=== PATIENT | male | born 1975 | race Caucasian/White ===

== ENCOUNTER 2018-07-30 09:00 | Emergency (ER) | payer SELFPAY ==
[2018-07-30 09:34] LABS: Absolute Lymphocytes (CBC) 1.6 K/uL (0.7-4.9); Absolute Monocytes 0.7 K/uL (0.1-1.3); Absolute Neutrophil 3.9 K/uL (1.8-8.0); Basophils % 0.6 % (0-1.3); Eosinophils % 1.1 % (0-4.4); Hematocrit 46.1 % (39.6-49.0); Monocytes % 10.6 % (3.3-12.3); RBC Red Blood Cell Count 4.89 M/uL (4.33-5.43)
[2018-07-30] MEDS ORDERED: MAGNESIUM CITRATE 300 ML BOT ONE (09:37)
[2018-07-30] MEDS ORDERED: NA CHLORIDE 0.9% 1,000 ML ONE (09:37)
[2018-07-30 09:46] LABS: ALT/SGPT 65 U/L (12-78); AST/SGOT 52 U/L (15-37); Alkaline Phosphatase 73 U/L (45-117); BUN Blood Urea Nitrogen 13 mg/dL (7-18); Bicarbonate 29 mmol/L (21-32); Bilirubin Direct 0.3 mg/dL (0-0.2); Bilirubin Total 0.8 mg/dL (0.2-1.0); Glucose Level 87 mg/dL (74-106); Lipase 65 U/L (73-393); Potassium 3.4 mmol/L (3.5-5.1); Protein, Total 8.9 g/dL (6.4-8.2); Sodium Level 140 mmol/L (136-145)
--- NOTE | 2018-07-30 11:30 | RAD REPORT ---
EXAM DESCRIPTION: CTAbdomen Pelvis W Contrast - 07/30/2018 11:17 am CLINICAL HISTORY: Abdominal pain. Abd pain;Constipation COMPARISON: CT ABD PELVIS W CONTRAST dated 11/06/2013; CT ABD PELVIS W CONTRAST dated 08/06/2013; CT A BD PELVIS W CONTRAST dated 04/07/2013 TECHNIQUE: Biphasic CT imaging of the abdomen and pelvis was performed with 100 ml non-ionic IV cont rast. All CT scans are performed using dose optimization technique as appropriate and may include automated exposure control or mA/KV adjustment according to patient size. FINDINGS: The lung bases are clear. The liver, spleen, pancreas, adrenal glands and kidneys are within normal limits. No bowel obstruction, free air, free fluid or abscess. Appendectomy. No evidence of significant lym phadenopathy. Hardware is in place at the thoracolumbar junction. No acute bony finding. IMPRESSION: No acute intra-abdominal or pelvic finding.
--- NOTE | 2018-07-30 11:38 | EDPHYS ---
Physician Documentation [facility] Name: Jonathan Hall Age: 42 yrs Sex: Male : 1975 Arrival Date: 07/30/2018 Time: 09:04 Bed 7 Private MD: Sherman Aguirre E ED Physician Abe Randolph HPI: 07/30 09:28 This 42 yrs old Male presents to ER via Ambulatory with complaints of rn Abdominal Pain. 09:28 The patient presents with abdominal pain. Onset: The symptoms/episode began/occurred at rn an unknown time. The symptoms do not radiate. Associated signs and symptoms: Pertinent positives: constipation, Pertinent negatives: nausea and vomiting, fever, hematuria, testicular pain, vomiting, vomiting blood. Modifying factors: The symptoms are alleviated by nothing, the symptoms are aggravated by nothing. Severity of pain: At its worst the pain was mild in the emergency department the pain is unchanged. The patient has experienced similar episodes in the past, chronically. Reports chronic abd pain and issues, taking methadone for 15 years, reports has known umbilical hernia that is still able to be reduced, reports increase in constipation but this morning had small bowel movement, no fever. . Historical: - Allergies: 09:11 Nubain; hb 09:11 Stadol; hb 09:11 tramadol; hb - Home Meds: 09:11 Adderall XR 20 mg Oral cp24 1 cap once daily [Active]; methadone 120mg daily [Active]; hb Xanax 2 mg Oral tab 1 tab 3 times per day [Active]; - PMHx: 09:11 Anxiety; ADD/ADHD; COPD; Sleep Apnea; Umbilical Hernia; hb - PSHx: 09:11 back surgery; Appendectomy; Knee surgery; hb - Immunization history:: Adult Immunizations up to date. - Social history:: Smoking status: Patient/guardian denies using tobacco. - Ebola Screening: : No symptoms or risks identified at this time. - Family history:: not pertinent. - Hospitalizations: : No recent hospitalization is reported. ROS: 09:28 Constitutional: Negative for fever, chills, and weight loss, Eyes: Negative for injury, rn pain, redness, and discharge, Neck: Negative for injury, pain, and swelling, Cardiovascular: Negative for chest pain, palpitations, and edema, Respiratory: Negative for shortness of breath, cough, wheezing, and pleuritic chest pain, Abdomen/GI: + abd pain and constipation MS/Extremity: Negative for injury and deformity, Skin: Negative for injury, rash, and discoloration, Neuro: Negative for headache, weakness, numbness, tingling, and seizure. Exam: 09:28 Constitutional: Overweight male, no acute distress Head/Face: Normocephalic, rn atraumatic. Eyes: Pupils equal round and reactive to light, extra-ocular motions intact. Lids and lashes normal. Conjunctiva and sclera are non-icteric and not injected. Cornea within normal limits. Periorbital areas with no swelling, redness, or edema. ENT: poor dentition Abdomen/GI: soft, + palpable umbilical hernia defect, no evidence of incarceration or strangulation, no peritoneal signs Skin: Warm, dry MS/ Extremity: Pulses equal, no cyanosis. Neuro: Awake and alert, GCS 15, oriented to person, place, time, and situation. Cranial nerves II-XII grossly intact. Motor strength 5/5 in all extremities. Sensory grossly intact. Cerebellar exam normal. Normal gait. Vital Signs: 09:11 BP 129 / 88; Pulse 83; Resp 16; Temp 97.9; Pulse Ox 96% on R/A; Pain 8/10; hb 11:48 BP 132 / 87; Pulse 84; Resp 18; Pulse Ox 100% on R/A; hj MDM: 09:06 Patient medically screened. rn 11:34 Differential diagnosis: bowel obstruction, constipation. Data reviewed: vital signs, rn nurses notes. 11:35 Counseling: I had a detailed discussion with the patient and/or guardian regarding: the rn historical points, exam findings, and any diagnostic results supporting the discharge/admit diagnosis, lab results, radiology results, the need for outpatient follow up, to return to the emergency department if symptoms worsen or persist or if there are any questions or concerns that arise at home. Response to treatment: the patient's symptoms have mildly improved after treatment, and as a result, I will discharge patient. Special discussion: I discussed with the patient/guardian in detail that at this point there is no indication for admission to the hospital. It is understood, however, that if the symptoms persist or worsen the patient needs to return immediately for re-evaluation. ED course: Recommend bowel regimen and return precautions. 07/30 09:18 Order name: Basic Metabolic Panel; Complete Time: 10:03 rn 07/30 09:18 Order name: CBC with Diff; Complete Time: 10:03 rn 07/30 09:18 Order name: Hepatic Function; Complete Time: 10:03 rn 07/30 09:18 Order name: Lipase; Complete Time: 10:03 rn 07/30 09:18 Order name: CT Abd/Pelvis - W/Contrast; Complete Time: 11:34 rn 07/30 09:18 Order name: IV Saline Lock; Complete Time: :24 rn 07/30 09:18 Order name: Labs collected and sent; Complete Time: :24 rn Administered Medications: : Drug: NS 0.9% 1000 ml Route: IV; Rate: 1000 ml; Site: right antecubital; : Drug: Magnesium Citrate Liquid 300 ml Route: PO; 09:35 Follow up: Response: No adverse reaction hj Disposition: 07/30/18 11:37 Discharged to Home. Impression: Unspecified abdominal pain, Constipation, unspecified. - Condition is Stable. - Discharge Instructions: Abdominal Pain, Adult, Constipation, Adult. - Medication Reconciliation Form, Thank You Letter, Antibiotic Education, Prescription Opioid Use form. - Follow up: Private Physician; When: As needed; Reason: Recheck today's complaints, Re-evaluation by your physician. - Problem is new. - Symptoms have improved. Signatures: Dispatcher [employer] EDMS Abe Randolph MD MD rn Joaquin, Henry, RN RN hj Baxter, Heather, RN RN hb Peltier, Brian RN RN bp Corrections: (The following items were deleted from the chart) 11:52 11:37 07/30/2018 11:37 Discharged to Home. Impression: Unspecified abdominal pain; bp Constipation, unspecified. Condition is Stable. Forms are Medication Reconciliation Form, Thank You Letter, Antibiotic Education, Prescription Opioid Use. Follow up: Private Physician; When: As needed; Reason: Recheck today's complaints, Re-evaluation by your physician. Problem is new. Symptoms have improved. rn
--- NOTE | 2018-07-30 11:38 | ER ---
Nurse's Notes [facility] Name: Jonathan Hall Age: 42 yrs Sex: Male : 1975 Arrival Date: 07/30/2018 Time: 09:04 Bed 7 Private MD: Sherman Aguirre E Diagnosis: Unspecified abdominal pain;Constipation, unspecified Presentation: 07/30 09:10 Presenting complaint: Abdominal pain, nausea, and constipation x 4 days. Transition of hb care: patient was not received from another setting of care. Onset of symptoms was July 27, 2018. Risk Assessment: Do you want to hurt yourself or someone else? Patient reports no desire to harm self or others. Care prior to arrival: None. 09:10 Method Of Arrival: Ambulatory 09:10 Acuity: DEMARCUS 3 09:12 Initial Sepsis Screen: Does the patient meet any 2 criteria? No. Patient's initial hb sepsis screen is negative. Does the patient have a suspected source of infection? No. Patient's initial sepsis screen is negative. Triage Assessment: 09:15 General: Appears in no apparent distress. comfortable, obese, Behavior is cooperative, bp appropriate for age, anxious. Pain: Complains of pain in abdomen. GI: Abdomen is non-distended. Historical: - Allergies: 09:11 Nubain; hb 09:11 Stadol; hb 09:11 tramadol; hb - Home Meds: 09:11 Adderall XR 20 mg Oral cp24 1 cap once daily [Active]; methadone 120mg daily [Active]; hb Xanax 2 mg Oral tab 1 tab 3 times per day [Active]; - PMHx: 09:11 Anxiety; ADD/ADHD; COPD; Sleep Apnea; Umbilical Hernia; hb - PSHx: 09:11 back surgery; Appendectomy; Knee surgery; hb - Immunization history:: Adult Immunizations up to date. - Social history:: Smoking status: Patient/guardian denies using tobacco. - Ebola Screening: : No symptoms or risks identified at this time. - Family history:: not pertinent. - Hospitalizations: : No recent hospitalization is reported. Screenin:12 Abuse screen: Denies threats or abuse. Denies injuries from another. Nutritional hb screening: No deficits noted. Tuberculosis screening: No symptoms or risk factors identified. Fall Risk None identified. Assessment: 09:15 General: Appears in no apparent distress. comfortable, obese, Behavior is cooperative, bp appropriate for age, anxious. Pain: Complains of pain in abdomen. Neuro: Level of Consciousness is awake, alert, obeys commands, Oriented to person, place, time, situation, Appropriate for age. Cardiovascular: No deficits noted. Respiratory: Airway is patent Respiratory effort is even, unlabored, Respiratory pattern is regular, symmetrical. GI: Bowel sounds present X 4 quads. Abd is soft X 4 quads. : No signs and/or symptoms were reported regarding the genitourinary system. EENT: No deficits noted. Derm: No deficits noted. Musculoskeletal: Circulation, motion, and sensation intact. Range of motion: intact in all extremities. 09:35 Reassessment: Pt finished CT oral contrast, CT notified. . aa5 11:22 Reassessment: Patient and/or family updated on plan of care and expected duration. Pain hj level reassessed. Patient is alert, oriented x 3, equal unlabored respirations, skin warm/dry/pink. wheeled back from CT; assisted to bathroom;. 11:51 Reassessment: PT D/C HOME AMBULATORY WITH FAMILY. bp Vital Signs: 09:11 BP 129 / 88; Pulse 83; Resp 16; Temp 97.9; Pulse Ox 96% on R/A; Pain 8/10; hb 11:48 BP 132 / 87; Pulse 84; Resp 18; Pulse Ox 100% on R/A; hj ED Course: 09:04 Patient arrived in ED. dl4 09:04 Sherman Aguirre MD is Private Physician. dl4 09:06 Abe Randolph MD is Attending Physician. rn 09:08 Antwan Lucero, DENZEL is Primary Nurse. bp 09:10 Triage completed. hb 09:11 Arm band placed on. hb 09:12 Patient has correct armband on for positive identification. Bed in low position. Call hb light in reach. Side rails up X 1. 09:25 Inserted saline lock: 20 gauge in right forearm, using aseptic technique. pc1 09:28 Basic Metabolic Panel Sent. hj 09:28 CBC with Diff Sent. hj 09:28 Hepatic Function Sent. hj 09:28 Lipase Sent. hj 11:08 CT completed. Patient tolerated procedure well. Patient moved to CT via wheelchair. Patient moved back from CT. 11:18 CT Abd/Pelvis - W/Contrast In Process Unspecified. EDMS 11:51 No provider procedures requiring assistance completed. IV discontinued, intact, bp bleeding controlled, No redness/swelling at site. Pressure dressing applied. Administered Medications: : Drug: NS 0.9% 1000 ml Route: IV; Rate: 1000 ml; Site: right antecubital; hj :27 Drug: Magnesium Citrate Liquid 300 ml Route: PO; hj 09:35 Follow up: Response: No adverse reaction Outcome: 11:37 Discharge ordered by . rn 11:52 Discharged to home ambulatory, with family. bp 11:52 Condition: stable 11:52 Discharge instructions given to patient, Instructed on discharge instructions, follow up and referral plans. Demonstrated understanding of instructions, follow-up care. 11:52 Patient left the ED. bp Signatures: Dispatcher [employer] Brittany Wei Roman, MD MD rn Calderon, Audri, RN RN aa5 Nathan Alvarado RN RN hj Baxter, Heather, RN RN hb Peltier, Brian, RN RN bp Luna, David dl4 Anderson Gage pc1
[2018-07-30 11:57] VITALS: TEMP 97.9
[2018-07-30 11:58] VITALS: BP 132/87; O2SAT 100
== END 2018-07-30 11:52 | disposition home or self-care (01) ==
LOC: ER 09:00
DX: K59.00 Constipation, unspecified (principal); F41.9 Anxiety disorder, unspecified; J44.9 Chronic obstructive pulmonary disease, unspecified; F90.9 Attention-deficit hyperactivity disorder, unspecified type; Z88.5 Allergy status to narcotic agent
CPT/HCPCS: 36415; 74177; 80048; 80076; 83690; 85025; 99284; J7030; Q9967

== ENCOUNTER 2018-08-07 11:34 | Emergency (ER) | payer SELFPAY ==
[2018-08-07 13:44] LABS: Absolute Lymphocytes (CBC) 0.9 K/uL (0.7-4.9); Absolute Monocytes 0.5 K/uL (0.1-1.3); Absolute Neutrophil 3.7 K/uL (1.8-8.0); Basophils % 0.4 % (0-1.3); Eosinophils % 0.3 % (0-4.4); Hematocrit 43.6 % (39.6-49.0); Lymphocytes % 18.3 % (15.3-44.8); MPV 10.3 fL (7.6-11.3); Monocytes % 9.3 % (3.3-12.3); RBC Red Blood Cell Count 4.53 M/uL (4.33-5.43)
[2018-08-07 14:20] LABS: ALT/SGPT 48 U/L (12-78); AST/SGOT 33 U/L (15-37); Alkaline Phosphatase 62 U/L (45-117); BUN Blood Urea Nitrogen 15 mg/dL (7-18); Bicarbonate 31 mmol/L (21-32); Bilirubin Direct 0.1 mg/dL (0-0.2); Bilirubin Total 0.4 mg/dL (0.2-1.0); Glucose Level 95 mg/dL (74-106); Potassium 3.8 mmol/L (3.5-5.1); Protein, Total 8.3 g/dL (6.4-8.2); Sodium Level 141 mmol/L (136-145); Troponin (Emerg Dept Use Only) < 0.02 ng/mL (0.0-0.045)
--- NOTE | 2018-08-07 14:31 | EDPHYS ---
Physician Documentation [facility] Name: Jonathan Hall Age: 42 yrs Sex: Male : 1975 Arrival Date: 08/07/2018 Time: 11:36 Bed 18 Private MD: Jason Foss HPI: 08/07 13:05 This 42 yrs old Male presents to ER via Ambulatory with complaints of Dental pm1 pain. 13:05 The patient presents with pain. The problem is located in the lower left lateral pm1 incisor, lower left central incisor, lower right central incisor and lower right lateral incisor. Onset: The symptoms/episode began/occurred 3 day(s) ago. Duration: The symptoms are continuous. Modifying factors: The symptoms are alleviated by nothing, the symptoms are aggravated by nothing. Associated signs and symptoms: Pertinent positives: subjective fever, Pertinent negatives: dysphagia, inability to eat. The patient has experienced similar episodes in the past, chronically. The patient has not recently seen a physician. Patient presents to the ER with primary complaint of dental pain to lower front teeth. Patient with history of drug abuse that caused his extensive dental decay. Has chronic low back pain and a subjective fever yesterday. Patient is concerned that he might have endocarditis from his dental infection. Historical: - Allergies: 12:11 Nubain; iw 12:11 Stadol; iw 12:11 tramadol; iw - Home Meds: 12:11 Adderall XR 20 mg Oral cp24 1 cap once daily [Active]; methadone 120mg daily [Active]; iw Xanax 2 mg Oral tab 1 tab 3 times per day [Active]; - PMHx: 12:11 ADD/ADHD; Anxiety; COPD; Sleep Apnea; Umbilical hernia; iw - PSHx: 12:11 back surgery; Appendectomy; Knee surgery; iw - Immunization history:: Adult Immunizations up to date. - Social history:: Smoking status: . - Ebola Screening: : Patient negative for fever greater than or equal to 101.5 degrees Fahrenheit, and additional compatible Ebola Virus Disease symptoms Patient denies exposure to infectious person Patient denies travel to an Ebola-affected area in the 21 days before illness onset No symptoms or risks identified at this time. ROS: 13:05 Constitutional: Negative for fever, chills, and weight loss, Eyes: Negative for injury, pm1 pain, redness, and discharge. 13:05 Neck: Negative for injury, pain, and swelling, Cardiovascular: Negative for chest pain, palpitations, and edema, Respiratory: Negative for shortness of breath, cough, wheezing, and pleuritic chest pain, Abdomen/GI: Negative for abdominal pain, nausea, vomiting, diarrhea, and constipation. 13:05 : Negative for injury, bleeding, discharge, and swelling, MS/Extremity: Negative for injury and deformity, Skin: Negative for injury, rash, and discoloration, Neuro: Negative for headache, weakness, numbness, tingling, and seizure. 13:05 ENT: Positive for dental pain, Negative for drainage from ear(s), ear pain, rhinorrhea, sinus congestion, sinus pain, sore throat, difficulty swallowing, difficulty handling secretions, hoarseness. 13:05 Back: Positive for of the low back area, pain. Exam: 13:05 Constitutional: This is a well developed, well nourished patient who is awake, alert, pm1 and in no acute distress. Head/Face: Normocephalic, atraumatic. Eyes: Pupils equal round and reactive to light, extra-ocular motions intact. Lids and lashes normal. Conjunctiva and sclera are non-icteric and not injected. Cornea within normal limits. Periorbital areas with no swelling, redness, or edema. Neck: Trachea midline, no thyromegaly or masses palpated, and no cervical lymphadenopathy. Supple, full range of motion without nuchal rigidity, or vertebral point tenderness. No Meningismus. Chest/axilla: Normal chest wall appearance and motion. Nontender with no deformity. No lesions are appreciated. Cardiovascular: Regular rate and rhythm with a normal S1 and S2. No gallops, murmurs, or rubs. Normal PMI, no JVD. No pulse deficits. Respiratory: Lungs have equal breath sounds bilaterally, clear to auscultation and percussion. No rales, rhonchi or wheezes noted. No increased work of breathing, no retractions or nasal flaring. 13:05 Abdomen/GI: Soft, non-tender, with normal bowel sounds. No distension or tympany. No guarding or rebound. No evidence of tenderness throughout. Back: No spinal tenderness. No costovertebral tenderness. Full range of motion. Skin: Warm, dry with normal turgor. Normal color with no rashes, no lesions, and no evidence of cellulitis. MS/ Extremity: Pulses equal, no cyanosis. Neurovascular intact. Full, normal range of motion. 13:05 ENT: External ear(s): are unremarkable, Ear canal(s): are normal, TM's: are normal, Nose: is normal, Mouth: Lips: normal, Oral mucosa: normal, Gums: normal with healthy appearance, Tongue: is normal, Posterior pharynx: is normal, airway is patent, no erythema, no exudate, no peritonsilar mass, no pooling of secretions, no swelling, Dental exam: missing teeth, diffusely, pain, specifically in the lower left lateral incisor (#23), lower left central incisor (#24), lower right central incisor (#25) and lower right lateral incisor (#26). 13:05 Neuro: Orientation: is normal, Motor: is normal, moves all fours. Vital Signs: 12:11 BP 131 / 92; Pulse 103; Resp 16; Temp 98.3; Pulse Ox 96% on R/A; Weight 108.86 kg; iw Height 6 ft. (182.88 cm); Pain 7/10; 13:38 BP 105 / 65; Pulse 79; Resp 20; Pulse Ox 97% on R/A; mh5 12:11 Body Mass Index 32.55 (108.86 kg, 182.88 cm) iw MDM: 12:20 Patient medically screened. pm1 14:30 Data reviewed: vital signs. Data interpreted: Pulse oximetry: on room air is 97 %. pm1 Interpretation: normal. Counseling: I had a detailed discussion with the patient and/or guardian regarding: the historical points, exam findings, and any diagnostic results supporting the discharge/admit diagnosis, lab results, the need for outpatient follow up, for definitive care, a dentist, to return to the emergency department if symptoms worsen or persist or if there are any questions or concerns that arise at home. 08/07 12:46 Order name: LFT's; Complete Time: 14:29 pm1 08/07 12:46 Order name: Basic Metabolic Panel; Complete Time: 14:29 pm1 08/07 12:46 Order name: CBC with Diff; Complete Time: 14:29 pm1 08/07 12:46 Order name: Troponin (emerg Dept Use Only); Complete Time: 14:29 pm1 08/07 12:46 Order name: EKG; Complete Time: 12:46 pm1 08/07 12:46 Order name: EKG - Nurse/Tech; Complete Time: 13:32 pm1 08/07 12:46 Order name: IV Saline Lock; Complete Time: 13:32 pm1 08/07 12:46 Order name: Labs collected and sent; Complete Time: 13:32 pm1 Administered Medications: 14:42 Drug: Clindamycin 600 mg Route: IVPB; Infused Over: 30 mins; Site: right antecubital; ss 15:15 Follow up: IV Status: Completed infusion ss 14:55 Drug: Zofran 4 mg Route: IVP; Site: right antecubital; ss 15:15 Follow up: Response: No adverse reaction; Nausea is decreased ss Disposition: 08/08 08:02 Co-signature as Attending Physician, Jason Juan MD I agree with the assessment and margarita plan of care. Disposition: 08/07/18 14:30 Discharged to Home. Impression: Periapical abscess without sinus. - Condition is Stable. - Discharge Instructions: Dental Abscess, Dental Pain. - Prescriptions for Clindamycin HCl 300 mg Oral Capsule - take 1 capsule by ORAL route every 6 hours for 10 days; 40 capsule. Zofran 4 mg Oral Tablet - take 1 tablet by ORAL route every 8 hours As needed; 20 tablet. - Medication Reconciliation Form, Thank You Letter, Antibiotic Education, Prescription Opioid Use form. - Follow up: Emergency Department; When: As needed; Reason: Worsening of condition. Follow up: Private Physician; When: 2 - 3 days; Reason: Recheck today's complaints, Continuance of care, Re-evaluation by your physician. - Problem is new. - Symptoms have improved. Signatures: Dispatcher [employer] Jason Yanes MD MD cha Williams, Irene, Sophie Whitfield RN, RN RN ss Marinas, Patrick, NP [employer] ADJUSTER pm1 Corrections: (The following items were deleted from the chart) 08/07 15:16 14:30 08/07/2018 14:30 Discharged to Home. Impression: Periapical abscess without ss sinus. Condition is Stable. Forms are Medication Reconciliation Form, Thank You Letter, Antibiotic Education, Prescription Opioid Use. Follow up: Emergency Department; When: As needed; Reason: Worsening of condition. Follow up: Private Physician; When: 2 - 3 days; Reason: Recheck today's complaints, Continuance of care, Re-evaluation by your physician. Problem is new. Symptoms have improved. pm1
--- NOTE | 2018-08-07 14:31 | ER ---
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 Transition of care: patient was not received from another setting of care. Onset of symptoms was August 06, 2018. Risk Assessment: Do you want to hurt yourself or someone else? Patient reports no desire to harm self or others. Initial Sepsis Screen: Does the patient meet any 2 criteria? No. Patient's initial sepsis screen is negative. Does the patient have a suspected source of infection? No. Patient's initial sepsis screen is negative. Care prior to arrival: None. 12:07 Method Of Arrival: Ambulatory iw 12:07 Acuity: DEMARCUS 3 iw Historical: - Allergies: 12:11 Nubain; iw 12:11 Stadol; iw 12:11 tramadol; iw - Home Meds: 12:11 Adderall XR 20 mg Oral cp24 1 cap once daily [Active]; methadone 120mg daily [Active]; iw Xanax 2 mg Oral tab 1 tab 3 times per day [Active]; - PMHx: 12:11 ADD/ADHD; Anxiety; COPD; Sleep Apnea; Umbilical hernia; iw - PSHx: 12:11 back surgery; Appendectomy; Knee surgery; iw - Immunization history:: Adult Immunizations up to date. - Social history:: Smoking status: . - Ebola Screening: : Patient negative for fever greater than or equal to 101.5 degrees Fahrenheit, and additional compatible Ebola Virus Disease symptoms Patient denies exposure to infectious person Patient denies travel to an Ebola-affected area in the 21 days before illness onset No symptoms or risks identified at this time. Screenin:00 Abuse screen: Denies threats or abuse. Denies injuries from another. Nutritional ss screening: No deficits noted. Tuberculosis screening: Never had TB. Fall Risk None identified. Assessment: 13:00 General: Appears in no apparent distress. comfortable, Behavior is calm, cooperative, ss Reports feeling ill for 2-3 days, fatigue for 2-3 days, Denies fever. Pain: Complains of pain in mouth Pain currently is 7 out of 10 on a pain scale. Quality of pain is described as tender, Pain began 3 days ago Is continuous. Neuro: Level of Consciousness is awake, alert, obeys commands, Oriented to person, place, time, situation, Speech speech is clear, but slow. Pupils are PERRLA. Cardiovascular: Capillary refill < 3 seconds is brisk in bilateral fingers Chest pain is denied. Respiratory: Breath sounds are clear bilaterally. Denies cough, shortness of breath. GI: Reports nausea, Patient currently denies abdominal pain, diarrhea, vomiting. : No signs and/or symptoms were reported regarding the genitourinary system. EENT: Nares are clear Poor dentition noted. Throat is clear. Derm: Skin is intact, is healthy with good turgor, Skin is dry, Skin is pink, warm \T\ dry. normal. Musculoskeletal: Circulation, motion, and sensation intact. Range of motion: intact in all extremities, Swelling absent. 15:15 Reassessment: Patient appears in no apparent distress at this time. Patient and/or ss family updated on plan of care and expected duration. Pain level reassessed. Patient is alert, oriented x 3, equal unlabored respirations, skin warm/dry/pink. Vital Signs: 12:11 BP 131 / 92; Pulse 103; Resp 16; Temp 98.3; Pulse Ox 96% on R/A; Weight 108.86 kg; iw Height 6 ft. (182.88 cm); Pain 7/10; 13:38 BP 105 / 65; Pulse 79; Resp 20; Pulse Ox 97% on R/A; mh5 12:11 Body Mass Index 32.55 (108.86 kg, 182.88 cm) iw ED Course: 11:36 Patient arrived in ED. mr 12:10 Triage completed. iw 12:11 Arm band placed on. iw 12:20 Anderson Whitney NP is PHCP. pm1 12:20 Jason Juan MD is Attending Physician. pm1 13:00 Patient has correct armband on for positive identification. Bed in low position. Call ss light in reach. 13:10 Inserted saline lock: 20 gauge in right antecubital area, using aseptic technique. ss ,using aseptic technique. insertion by LUCIANA gongora tech Blood collected. Patient maintains SpO2 saturation greater than 95% on room air. 13:23 Sophie Gunderson, RN is Primary Nurse. 13:42 EKG done, by power tool repair technician. reviewed by Anderson Whitney NP. sm3 15:15 No provider procedures requiring assistance completed. IV discontinued, intact, ss bleeding controlled, No redness/swelling at site. Pressure dressing applied. Administered Medications: 14:42 Drug: Clindamycin 600 mg Route: IVPB; Infused Over: 30 mins; Site: right antecubital; ss 15:15 Follow up: IV Status: Completed infusion ss 14:55 Drug: Zofran 4 mg Route: IVP; Site: right antecubital; ss 15:15 Follow up: Response: No adverse reaction; Nausea is decreased ss Outcome: 14:30 Discharge ordered by MD. pm1 15:15 Discharged to home ambulatory, with significant other. 15:15 Condition: good 15:15 Discharge instructions given to patient, family, Instructed on discharge instructions, follow up and referral plans. medication usage, Demonstrated understanding of instructions, follow-up care, medications, Prescriptions given X 2. 15:16 Patient left the ED. Signatures: Tanvi Thurston Irene, RN RN Sophie Gunderson RN RN ss Marinas, Patrick, NOBLE DRILL RIG OPERATOR HELPER pm1 Phoebe Zarate [facility] [place] 3
--- NOTE | 2018-08-07 14:40 | EKG ---
Test Date: 2018-08-07 Test Time: 13:31:06 Storehouse Clerk: OMAR MEASUREMENT RESULTS: Intervals: Rate: 53 MT: 158 QRSD: 102 QT: 436 QTc: 409 [place]: P: 28 MT: 158 QRS: 12 T: 12 INTERPRETIVE STATEMENTS: Sinus bradycardia Moderate voltage criteria for LVH, may be normal variant Borderline ECG Compared to ECG 03/26/2017 13:39:02 Left ventricular hypertrophy now present Sinus rhythm no longer present Electronically Signed On 08-07-18 14:39:40 CDT by Bang Palomo
[2018-08-07] MEDS ORDERED: CLINDAMYCIN 600MG/D5W 600 MG/50 ML BAG IV ONE (14:47)
[2018-08-07] MEDS ORDERED: ONDANSETRON 4 MG/2 ML VIAL ONE (15:02)
[2018-08-07 16:06] VITALS: TEMP 98.3
[2018-08-07 16:08] VITALS: BP 105/65; O2SAT 97
== END 2018-08-07 15:16 | disposition home or self-care (01) ==
LOC: ER 11:34
DX: K04.7 Periapical abscess without sinus (principal); F90.9 Attention-deficit hyperactivity disorder, unspecified type; F41.9 Anxiety disorder, unspecified; Z88.5 Allergy status to narcotic agent; Z88.6 Allergy status to analgesic agent
CPT/HCPCS: 36415; 80048; 80076; 84484; 85025; 93005; 96365; 96375; 99284; J2405

== ENCOUNTER 2019-04-28 17:48 | Emergency (ER) | payer SELFPAY ==
[2019-04-28] MEDS ORDERED: AMOX/K CLAV 875 MG TAB ONE (19:31)
[2019-04-28] MEDS ORDERED: IBUPROFEN 400 MG TAB ONE (19:31)
--- NOTE | 2019-04-28 19:35 | EDPHYS ---
Physician Documentation [facility] Name: Jonathan Hall Age: 43 yrs Sex: Male : 1975 Arrival Date: 04/28/2019 Time: 17:50 Bed 27 Private MD: Sherman Aguirre E ED Physician Jason Juan HPI: 04/28 19:27 This 43 yrs old Male presents to ER via Ambulatory with complaints of margarita Toothache. 19:27 The patient presents with broken tooth/teeth, pain, redness, swelling. The problem is margarita located in the frenulum and gums. Onset: The symptoms/episode began/occurred 3 day(s) ago. Duration: The symptoms are continuous, and are steadily getting worse. Modifying factors: The symptoms are alleviated by nothing, the symptoms are aggravated by air, chewing, cold fluids. Associated signs and symptoms: The patient has no apparent associated signs or symptoms. Severity of symptoms: At their worst the symptoms were mild, moderate, in the emergency department the symptoms are unchanged. The patient has experienced similar episodes in the past, several times. Historical: - Allergies: 18:08 Nubain; aj1 18:08 Stadol; aj1 18:08 tramadol; aj1 - Home Meds: 18:08 Adderall XR 20 mg Oral cp24 1 cap once daily [Active]; methadone 120mg daily [Active]; aj1 Xanax 2 mg Oral tab 1 tab 3 times per day [Active]; Phenergan Oral [Active]; Probiotic oral oral [Active]; esomeprazole magnesium oral oral [Active]; - PMHx: 18:08 ADD/ADHD; Anxiety; COPD; Sleep Apnea; Umbilical hernia; aj1 - Immunization history:: Flu vaccine is not up to date. - Social history:: Smoking status: Patient/guardian denies using tobacco. - Ebola Screening: : Patient denies travel to an Ebola-affected area in the 21 days before illness onset. ROS: 19:27 Constitutional: Negative for fever, chills, and weight loss, Eyes: Negative for injury, margarita pain, redness, and discharge, Neck: Negative for injury, pain, and swelling, Cardiovascular: Negative for chest pain, palpitations, and edema, Respiratory: Negative for shortness of breath, cough, wheezing, and pleuritic chest pain, Abdomen/GI: Negative for abdominal pain, nausea, vomiting, diarrhea, and constipation, Back: Negative for injury and pain, : Negative for injury, bleeding, discharge, and swelling, MS/Extremity: Negative for injury and deformity, Skin: Negative for injury, rash, and discoloration, Neuro: Negative for headache, weakness, numbness, tingling, and seizure, Psych: Negative for depression, anxiety, suicide ideation, homicidal ideation, and hallucinations, Allergy/Immunology: Negative for hives, rash, and allergies, Endocrine: Negative for neck swelling, polydipsia, polyuria, polyphagia, and marked weight changes, Hematologic/Lymphatic: Negative for swollen nodes, abnormal bleeding, and unusual bruising. 19:27 ENT: Positive for Teeth pain Exam: 19:27 Constitutional: This is a well developed, well nourished patient who is awake, alert, margarita and in no acute distress. Head/Face: Normocephalic, atraumatic. Eyes: Pupils equal round and reactive to light, extra-ocular motions intact. Lids and lashes normal. Conjunctiva and sclera are non-icteric and not injected. Cornea within normal limits. Periorbital areas with no swelling, redness, or edema. Neck: Trachea midline, no thyromegaly or masses palpated, and no cervical lymphadenopathy. Supple, full range of motion without nuchal rigidity, or vertebral point tenderness. No Meningismus. Chest/axilla: Normal chest wall appearance and motion. Nontender with no deformity. No lesions are appreciated. Cardiovascular: Regular rate and rhythm with a normal S1 and S2. No gallops, murmurs, or rubs. Normal PMI, no JVD. No pulse deficits. Respiratory: Lungs have equal breath sounds bilaterally, clear to auscultation and percussion. No rales, rhonchi or wheezes noted. No increased work of breathing, no retractions or nasal flaring. Abdomen/GI: Soft, non-tender, with normal bowel sounds. No distension or tympany. No guarding or rebound. No evidence of tenderness throughout. Back: No spinal tenderness. No costovertebral tenderness. Full range of motion. Male : Normal genitalia with no discharge or lesions. Skin: Warm, dry with normal turgor. Normal color with no rashes, no lesions, and no evidence of cellulitis. MS/ Extremity: Pulses equal, no cyanosis. Neurovascular intact. Full, normal range of motion. Neuro: Awake and alert, GCS 15, oriented to person, place, time, and situation. Cranial nerves II-XII grossly intact. Motor strength 5/5 in all extremities. Sensory grossly intact. Cerebellar exam normal. Normal gait. Psych: Awake, alert, with orientation to person, place and time. Behavior, mood, and affect are within normal limits. 19:27 ENT: Mouth: Oral mucosa: normal, pink and intact, moist, Gums: noted to have cellulitis, reddened, swollen, on the frenulum and gums. Vital Signs: 18:08 BP 130 / 88; Pulse 118; Resp 20; Temp 97.4; Pulse Ox 95% on R/A; Weight 113.85 kg (R); aj1 Height 6 ft. 1 in. (185.42 cm) (R); Pain 3/10; 19:40 BP 118 / 75; Pulse 89; Resp 19; Temp 99.5; Pulse Ox 99% ; rr5 18:08 Body Mass Index 33.12 (113.85 kg, 185.42 cm) [facility] MDM: 18:20 Patient medically screened. [facility] 19:27 Data reviewed: vital signs, nurses notes. [facility] Administered Medications: 19:32 Drug: Augmentin 875 mg Route: PO; rr5 19:48 Follow up: Response: Medication administered at discharge. rr5 19:32 Drug: Motrin 800 mg Route: PO; rr5 19:48 Follow up: Response: Medication administered at discharge. rr5 Disposition: 04/28/19 19:34 Discharged to Home. Impression: Dental caries - pain. - Condition is Stable. - Discharge Instructions: Dental Pain, Dental Pain, [id number]. - Prescriptions for Augmentin 875- 125 mg Oral Tablet - take 1 tablet by ORAL route every 12 hours for 10 days; 20 tablet. - Medication Reconciliation Form, Thank You Letter, Antibiotic Education, Prescription Opioid Use form. - Follow up: Sherman Aguirre MD; When: 2 - 3 days; Reason: Recheck today's complaints, Continuance of care, Re-evaluation by your physician. Follow up: Alin Mcintosh DDS; When: 2 - 3 days; Reason: Recheck today's complaints, Continuance of care, Re-evaluation by your physician. - Problem is new. - Symptoms have improved. Signatures: Josefina Salcedo RN RN aj1 Jason Juan MD MD cha Roque, Raymond RN RN rr5 Corrections: (The following items were deleted from the chart) 19:48 19:34 04/28/2019 19:34 Discharged to Home. Impression: Dental caries - pain. Condition rr5 is Stable. Forms are Medication Reconciliation Form, Thank You Letter, Antibiotic Education, Prescription Opioid Use. Follow up: Sherman Aguirre; When: 2 - 3 days; Reason: Recheck today's complaints, Continuance of care, Re-evaluation by your physician. Follow up: Alin Mcintosh; When: 2 - 3 days; Reason: Recheck today's complaints, Continuance of care, Re-evaluation by your physician. Problem is new. Symptoms have improved. margarita
--- NOTE | 2019-04-28 19:35 | ER ---
Nurse's Notes [facility] Name: Jonathan Hall Age: 43 yrs Sex: Male : 1975 Arrival Date: 04/28/2019 Time: 17:50 Bed 27 Private MD: Sherman Aguirre E Diagnosis: Dental caries-pain Presentation: 04/28 18:05 Presenting complaint: Patient states: "I've got a bad infection in my gums and its aj1 bothering me bad, my face is swollen up, its actually gone down some, but I took some antibiotics that my fiance had." Reports pain to left jaw. Reports subjective fever. Transition of care: patient was not received from another setting of care. Onset of symptoms was 2018. Risk Assessment: Do you want to hurt yourself or someone else? Patient reports no desire to harm self or others. Initial Sepsis Screen: Does the patient meet any 2 criteria? HR > 90 bpm. No. Patient's initial sepsis screen is negative. Does the patient have a suspected source of infection? Yes: Other: possible infected tooth. Care prior to arrival: None. 18:05 Method Of Arrival: Ambulatory aj 18:05 Acuity: DEMARCUS 4 aj1 Triage Assessment: 18:08 General: Appears in no apparent distress. uncomfortable, Behavior is calm, cooperative, aj1 appropriate for age. Pain: Pain currently is 3 out of 10 on a pain scale. EENT: Reports pain since to left jaw. Neuro: Level of Consciousness is awake, alert, obeys commands. Cardiovascular: Patient's skin is warm and dry. Respiratory: Airway is patent Respiratory effort is even, unlabored, Respiratory pattern is regular, symmetrical. Historical: - Allergies: 18:08 Nubain; aj1 18:08 Stadol; aj1 18:08 tramadol; aj1 - Home Meds: 18:08 Adderall XR 20 mg Oral cp24 1 cap once daily [Active]; methadone 120mg daily [Active]; aj1 Xanax 2 mg Oral tab 1 tab 3 times per day [Active]; Phenergan Oral [Active]; Probiotic oral oral [Active]; esomeprazole magnesium oral oral [Active]; - PMHx: 18:08 ADD/ADHD; Anxiety; COPD; Sleep Apnea; Umbilical hernia; aj1 - Immunization history:: Flu vaccine is not up to date. - Social history:: Smoking status: Patient/guardian denies using tobacco. - Ebola Screening: : Patient denies travel to an Ebola-affected area in the 21 days before illness onset. Screenin:20 Abuse screen: Denies threats or abuse. Denies injuries from another. Nutritional ca1 screening: No deficits noted. Tuberculosis screening: No symptoms or risk factors identified. Fall Risk None identified. Assessment: 18:20 General: Appears in no apparent distress. comfortable, Behavior is calm, cooperative, ca1 appropriate for age. Pain: Complains of pain in left cheek Pain currently is 7 out of 10 on a pain scale. Pain began 2 weeks ago. Neuro: Level of Consciousness is awake, alert, obeys commands, Oriented to person. EENT: Dental caries noted in upper left central incisor (#9), upper left lateral incisor (#10), upper left cuspid (#11) and upper left first bicuspid (#12). Derm: Skin is intact, is healthy with good turgor, Skin is pink, warm \\T\\ dry. Musculoskeletal: Circulation, motion, and sensation intact. Capillary refill < 3 seconds, Range of motion: intact in all extremities. 19:00 General: Appears in no apparent distress. comfortable, Behavior is calm, cooperative, rr5 appropriate for age. Neuro: Level of Consciousness is awake, alert, obeys commands, Oriented to person, place, time, situation. Cardiovascular: Capillary refill < 3 seconds Patient's skin is warm and dry. Respiratory: Airway is patent Respiratory effort is even, unlabored, Respiratory pattern is regular, symmetrical. GI: No signs and/or symptoms were reported involving the gastrointestinal system. : No signs and/or symptoms were reported regarding the genitourinary system. EENT: Dental caries noted in upper left cuspid (#11), upper left first bicuspid (#12), upper left second bicuspid (#13) and upper left first molar (#14). 19:45 Reassessment: Patient appears in no apparent distress at this time. Patient is alert, rr5 oriented x 3, equal unlabored respirations, skin warm/dry/pink. discharge instruction given and explained without complaints made. Patient states feeling better. Vital Signs: 18:08 BP 130 / 88; Pulse 118; Resp 20; Temp 97.4; Pulse Ox 95% on R/A; Weight 113.85 kg (R); [facility][1] Height 6 ft. 1 in. (185.42 cm) (R); Pain 3/10; 19:40 BP 118 / 75; Pulse 89; Resp 19; Temp 99.5; Pulse Ox 99% ; rr5 18:08 Body Mass Index 33.12 (113.85 kg, 185.42 cm) [facility][1] ED Course: 17:50 Patient arrived in ED. [facility] 17:50 Sherman Aguirre MD is Private Physician. 5 18:07 Triage completed. aj 18:08 Arm band placed on Patient placed in an exam room. [facility][1] 18:20 Jason Juan MD is Attending Physician. [facility] 18:20 Patient has correct armband on for positive identification. Bed in low position. Call ca1 light in reach. Side rails up X 1. Pulse ox on. NIBP on. 18:20 No provider procedures requiring assistance completed. Patient did not have IV access ca1 during this emergency room visit. 19:23 Ascencion Hernandez, RN is Primary Nurse. rr5 19:32 Sherman Aguirre MD is Referral Physician. [facility] 19:32 Alin Mcintosh DDS is Referral Physician. [facility] Administered Medications: 19:32 Drug: Augmentin 875 mg Route: PO; rr5 19:48 Follow up: Response: Medication administered at discharge. rr5 19:32 Drug: Motrin 800 mg Route: PO; rr5 19:48 Follow up: Response: Medication administered at discharge. rr5 Outcome: 19:34 Discharge ordered by . [facility] 19:48 Patient left the ED. rr5 Signatures: Josefina Salcedo RN RN ajJason Bianchi MD MD cha Roque, Raymond, DENZEL RN rr5 Tasneem Bowman RN RN ca1 [place] [id number]
[2019-04-28 20:40] VITALS: BP 118/75; TEMP 99.5; O2SAT 99
== END 2019-04-28 19:48 | disposition home or self-care (01) ==
LOC: ER 17:48
DX: K02.9 Dental caries, unspecified (principal); F41.9 Anxiety disorder, unspecified; Z88.6 Allergy status to analgesic agent; Z88.8 Allergy status to other drugs, medicaments and biological substances
CPT/HCPCS: 99283

== ENCOUNTER 2019-07-06 17:52 | Emergency (ER) | payer SELFPAY ==
[2011-10-05 13:13] VITALS: BP 120/62
--- NOTE | 2019-07-06 19:04 | ER ---
Nurse's Notes [facility] Name: Jonathan Hall Age: 43 yrs Sex: Male : 1975 Arrival Date: 07/06/2019 Time: 17:55 Bed 5 Private MD: Sherman Aguirre E Diagnosis: Dental caries;Dental root caries Presentation: 07/06 18:00 Presenting complaint: Patient states: "I've been having problems with my tooth and I aj1 was on antibiotics and I should have already gone to the dentist, but I woke up the other day, and it had quit bothering me and now its come back and it was real swollen when I woke up the other morning". Transition of care: patient was not received from another setting of care. Onset of symptoms was June 2019. Risk Assessment: Do you want to hurt yourself or someone else? Patient reports no desire to harm self or others. Initial Sepsis Screen: Does the patient meet any 2 criteria? No. Patient's initial sepsis screen is negative. Does the patient have a suspected source of infection? No. Patient's initial sepsis screen is negative. Care prior to arrival: None. 18:00 Method Of Arrival: Ambulatory aj1 18:00 Acuity: DEMARCUS 4 aj1 Triage Assessment: 18:02 General: Appears in no apparent distress. comfortable, Behavior is calm, cooperative, aj1 appropriate for age. Pain: Pain currently is 7 out of 10 on a pain scale. EENT: Reports pain Pain is 7 out of 10 on a pain scale. Neuro: Level of Consciousness is awake, alert, obeys commands. Cardiovascular: Patient's skin is warm and dry. Respiratory: Airway is patent Respiratory effort is even, unlabored, Respiratory pattern is regular, symmetrical. Historical: - Allergies: 18:02 Nubain; aj1 18:02 Stadol; aj1 18:02 tramadol; aj1 - Home Meds: 18:02 Adderall XR 20 mg Oral cp24 1 cap once daily [Active]; esomeprazole magnesium Oral aj1 [Active]; methadone 120mg daily [Active]; Phenergan Oral [Active]; Probiotic Oral [Active]; Xanax 2 mg Oral tab 1 tab 3 times per day [Active]; - PMHx: 18:02 ADD/ADHD; Anxiety; COPD; Sleep Apnea; Umbilical hernia; aj1 - Immunization history:: Flu vaccine is not up to date. - Coronavirus screen:: The patient has NOT traveled to [place] in the past 14 days. - Social history:: Smoking status: Patient/guardian denies using tobacco. - Family history:: not pertinent. - Ebola Screening: : Patient denies travel to an Ebola-affected area in the 21 days before illness onset. Screenin:28 Abuse screen: Denies threats or abuse. Nutritional screening: No deficits noted. em Tuberculosis screening: No symptoms or risk factors identified. Fall Risk None identified. Assessment: 18:35 General: Appears in no apparent distress. uncomfortable, Behavior is calm, cooperative, em Reports fever for 2-3 days. Pain: Complains of pain in upper left third molar Pain currently is 7 out of 10 on a pain scale. Pain began 2-3 days ago. Neuro: Level of Consciousness is awake, alert, obeys commands, Oriented to person, place, time, situation, Appropriate for age. Cardiovascular: Capillary refill < 3 seconds Patient's skin is warm and dry. Respiratory: Airway is patent Respiratory effort is even, unlabored, Respiratory pattern is regular, symmetrical. EENT: Nares are clear Oral mucosa is moist. Poor dentition noted. Throat is clear is pink Reports pain in left jaw. Derm: Skin is intact, is healthy with good turgor, Skin is pink, warm \\T\\ dry. Musculoskeletal: Capillary refill < 3 seconds, Range of motion: intact in all extremities. 18:35 GI: Reports nausea. em 19:18 Reassessment: Patient appears in no apparent distress at this time. Patient and/or jb4 family updated on plan of care and expected duration. Pain level reassessed. Patient is alert, oriented x 3, equal unlabored respirations, skin warm/dry/pink. Vital Signs: 18:02 BP 125 / 87; Pulse 92; Resp 18; Temp 97.3; Pulse Ox 99% on R/A; Weight 111.13 kg (R); aj1 Height 6 ft. 0 in. (182.88 cm) (R); Pain 7/10; 18:02 Body Mass Index 33.23 (111.13 kg, 182.88 cm) aj1 ED Course: 17:55 Patient arrived in ED. mr 17:55 Sherman Aguirre MD is Private Physician. mr 18:01 Triage completed. aj1 18:02 Arm band placed on Patient placed in an exam room. aj1 18:04 Jason Juan MD is Attending Physician. margarita 18:10 Fady Nesbitt, RN is Primary Nurse. em 18:28 Patient has correct armband on for positive identification. Bed in low position. em 19:01 Sherman Aguirre MD is Referral Physician. [facility] 19:02 Alin Mcintosh DDS is Referral Physician. [facility] 19:18 No provider procedures requiring assistance completed. Patient did not have IV access jb4 during this emergency room visit. Administered Medications: 19:10 Drug: Augmentin 875 mg Route: PO; jb4 19:20 Follow up: Response: No adverse reaction jb4 Outcome: 19:03 Discharge ordered by . [facility] 19:18 Discharged to home ambulatory. jb4 19:18 Condition: stable 19:18 Discharge instructions given to patient, family, Instructed on discharge instructions, follow up and referral plans. medication usage, Demonstrated understanding of instructions, follow-up care, medications, Prescriptions given X 1. 19:20 Patient left the ED. jb4 Signatures: Josefina Salcedo, RN RN aj1 Jason Juan MD MD cha Rivera, Mary mr Fady Nesbitt, RN RN Cheng Kaiser RN RN jb4
--- NOTE | 2019-07-06 19:04 | EDPHYS ---
Physician Documentation [facility] Name: Jonathan Hall Age: 43 yrs Sex: Male : 1975 Arrival Date: 07/06/2019 Time: 17:55 Bed 5 Private MD: Sherman Aguirre E ED Physician Jason Juan HPI: 07/06 18:59 This 43 yrs old Male presents to ER via Ambulatory with complaints of margarita Toothache. 18:59 The patient presents with lost tooth/teeth, pain, redness, swelling. The problem is margarita located in the frenulum, gums, left buccal mucosa and right buccal mucosa. Onset: The symptoms/episode began/occurred 3 day(s) ago. Duration: The symptoms are continuous, and are steadily getting worse. Modifying factors: The symptoms are alleviated by nothing, the symptoms are aggravated by chewing. Associated signs and symptoms: The patient has no apparent associated signs or symptoms. Severity of symptoms: At their worst the symptoms were mild, in the emergency department the symptoms are unchanged. The patient has not experienced similar symptoms in the past. Historical: - Allergies: 18:02 Nubain; aj1 18:02 Stadol; aj1 18:02 tramadol; aj1 - Home Meds: 18:02 Adderall XR 20 mg Oral cp24 1 cap once daily [Active]; esomeprazole magnesium Oral aj1 [Active]; methadone 120mg daily [Active]; Phenergan Oral [Active]; Probiotic Oral [Active]; Xanax 2 mg Oral tab 1 tab 3 times per day [Active]; - PMHx: 18:02 ADD/ADHD; Anxiety; COPD; Sleep Apnea; Umbilical hernia; aj1 - Immunization history:: Flu vaccine is not up to date. - Coronavirus screen:: The patient has NOT traveled to [place] in the past 14 days. - Social history:: Smoking status: Patient/guardian denies using tobacco. - Family history:: not pertinent. - Ebola Screening: : Patient denies travel to an Ebola-affected area in the 21 days before illness onset. ROS: 18:59 Constitutional: Negative for fever, chills, and weight loss, Eyes: Negative for injury, margarita pain, redness, and discharge, Neck: Negative for injury, pain, and swelling, Cardiovascular: Negative for chest pain, palpitations, and edema, Respiratory: Negative for shortness of breath, cough, wheezing, and pleuritic chest pain, Abdomen/GI: Negative for abdominal pain, nausea, vomiting, diarrhea, and constipation, Back: Negative for injury and pain, : Negative for injury, bleeding, discharge, and swelling, MS/Extremity: Negative for injury and deformity, Skin: Negative for injury, rash, and discoloration, Neuro: Negative for headache, weakness, numbness, tingling, and seizure, Psych: Negative for depression, anxiety, suicide ideation, homicidal ideation, and hallucinations, Allergy/Immunology: Negative for hives, rash, and allergies, Endocrine: Negative for neck swelling, polydipsia, polyuria, polyphagia, and marked weight changes, Hematologic/Lymphatic: Negative for swollen nodes, abnormal bleeding, and unusual bruising. 18:59 ENT: Positive for dental pain, Gum pain Exam: 18:59 Constitutional: This is a well developed, well nourished patient who is awake, alert, margarita and in no acute distress. Head/Face: Normocephalic, atraumatic. Eyes: Pupils equal round and reactive to light, extra-ocular motions intact. Lids and lashes normal. Conjunctiva and sclera are non-icteric and not injected. Cornea within normal limits. Periorbital areas with no swelling, redness, or edema. Neck: Trachea midline, no thyromegaly or masses palpated, and no cervical lymphadenopathy. Supple, full range of motion without nuchal rigidity, or vertebral point tenderness. No Meningismus. Chest/axilla: Normal chest wall appearance and motion. Nontender with no deformity. No lesions are appreciated. Cardiovascular: Regular rate and rhythm with a normal S1 and S2. No gallops, murmurs, or rubs. Normal PMI, no JVD. No pulse deficits. Respiratory: Lungs have equal breath sounds bilaterally, clear to auscultation and percussion. No rales, rhonchi or wheezes noted. No increased work of breathing, no retractions or nasal flaring. Abdomen/GI: Soft, non-tender, with normal bowel sounds. No distension or tympany. No guarding or rebound. No evidence of tenderness throughout. Back: No spinal tenderness. No costovertebral tenderness. Full range of motion. Male : Normal genitalia with no discharge or lesions. Skin: Warm, dry with normal turgor. Normal color with no rashes, no lesions, and no evidence of cellulitis. MS/ Extremity: Pulses equal, no cyanosis. Neurovascular intact. Full, normal range of motion. Neuro: Awake and alert, GCS 15, oriented to person, place, time, and situation. Cranial nerves II-XII grossly intact. Motor strength 5/5 in all extremities. Sensory grossly intact. Cerebellar exam normal. Normal gait. Psych: Awake, alert, with orientation to person, place and time. Behavior, mood, and affect are within normal limits. 18:59 ENT: Dental exam: dental caries, the patient wears dentures, fractured teeth are noted, gum swelling, pain, that is mild, that is moderate, diffusely. Vital Signs: 18:02 BP 125 / 87; Pulse 92; Resp 18; Temp 97.3; Pulse Ox 99% on R/A; Weight 111.13 kg (R); aj1 Height 6 ft. 0 in. (182.88 cm) (R); Pain 7/10; 18:02 Body Mass Index 33.23 (111.13 kg, 182.88 cm) aj1 MDM: 18:04 Patient medically screened. [facility] 19:01 Data reviewed: vital signs, nurses notes. [facility] Administered Medications: 19:10 Drug: Augmentin 875 mg Route: PO; [facility] 19:20 Follow up: Response: No adverse reaction jb4 Disposition: 07/06/19 19:03 Discharged to Home. Impression: Dental caries, Dental root caries. - Condition is Stable. - Discharge Instructions: Dental Caries, Adult, Dental Pain, Dental Pain, [id number], Diet and Dental Disease, Dental Caries, [id number]. - Prescriptions for Augmentin 875- 125 mg Oral Tablet - take 1 tablet by ORAL route every 12 hours for 10 days; 20 tablet. - Medication Reconciliation Form, Thank You Letter, Antibiotic Education, Prescription Opioid Use form. - Follow up: Sherman Aguirre MD; When: 2 - 3 days; Reason: Recheck today's complaints, Continuance of care, Re-evaluation by your physician. Follow up: Alin Mcintosh DDS; When: 2 - 3 days; Reason: Recheck today's complaints, Re-evaluation by your physician. - Problem is new. - Symptoms have improved. Signatures: Josefina Salcedo RN RN aj1 Jason Juan MD MD cha Bryson, James, RN RN jb4 Corrections: (The following items were deleted from the chart) 19:20 19:03 07/06/2019 19:03 Discharged to Home. Impression: Dental caries; Dental root jb4 caries. Condition is Stable. Forms are Medication Reconciliation Form, Thank You Letter, Antibiotic Education, Prescription Opioid Use. Follow up: Sherman Aguirre; When: 2 - 3 days; Reason: Recheck today's complaints, Continuance of care, Re-evaluation by your physician. Follow up: Alin Mcintosh; When: 2 - 3 days; Reason: Recheck today's complaints, Re-evaluation by your physician. Problem is new. Symptoms have improved. margarita
[2019-07-06] MEDS ORDERED: AMOX/K CLAV 875 MG TAB ONE (19:08)
== END 2019-07-06 19:20 | disposition home or self-care (01) ==
LOC: ER 17:52
DX: K02.9 Dental caries, unspecified (principal); K02.7 Dental root caries; F90.9 Attention-deficit hyperactivity disorder, unspecified type; F41.9 Anxiety disorder, unspecified; J44.9 Chronic obstructive pulmonary disease, unspecified; Z88.6 Allergy status to analgesic agent; Z88.5 Allergy status to narcotic agent
CPT/HCPCS: 99283

== ENCOUNTER 2020-03-10 16:01 | Emergency (ER) | payer SELFPAY ==
[2020-03-10] MEDS ORDERED: LORazepam 2 MG/ML VIAL ONE (17:29)
[2020-03-10 17:36] LABS: Absolute Lymphocytes (CBC) 0.8 K/uL (0.7-4.9); Basophils % 0.5 % (0-1.3); Hematocrit 43.4 % (39.6-49.0); Lymphocytes % 13.7 % (15.3-44.8); MPV 9.5 fL (7.6-11.3); RBC Red Blood Cell Count 4.59 M/uL (4.33-5.43)
[2020-03-10 17:38] LABS: Protime INR 1.09
[2020-03-10 17:58] LABS: ALT/SGPT 83 U/L (12-78); AST/SGOT 58 U/L (15-37); Albumin 3.8 g/dL (3.4-5.0); Alkaline Phosphatase 79 U/L (45-117); BUN Blood Urea Nitrogen 12 mg/dL (7-18); Bicarbonate 33 mmol/L (21-32); Bilirubin Direct 0.2 mg/dL (0-0.2); Bilirubin Total 0.5 mg/dL (0.2-1.0); Glucose Level 103 mg/dL (74-106); Magnesium 2.1 mg/dL (1.8-2.4); NT PRO-BNP 205 pg/mL (<125); Potassium 3.7 mmol/L (3.5-5.1); Protein, Total 8.7 g/dL (6.4-8.2); Sodium Level 140 mmol/L (136-145); Troponin (Emerg Dept Use Only) < 0.02 ng/mL (0.0-0.045)
--- NOTE | 2020-03-10 18:09 | RAD REPORT ---
EXAM DESCRIPTION: Bjorn Single View03/10/2020 6:02 pm CLINICAL HISTORY: Palpitations COMPARISON: 2015 FINDINGS: Chronic elevation left hemidiaphragm. Old clavicular fractures The lungs appear clear of acute infiltrate. The heart is normal size IMPRESSION: No acute abnormalities displayed
--- NOTE | 2020-03-10 18:14 | EDPHYS ---
Physician Documentation [facility] Name: Jonathan Hall Age: 44 yrs Sex: Male : 1975 Arrival Date: 03/10/2020 Time: 16:02 Bed 20 Private MD: ED Physician Jason Juan HPI: 03/10 17:08 This 44 yrs old Male presents to ER via Ambulatory with complaints of jmm Toothache, Abdominal Pain. 17:08 The patient presents with pain. Onset: The symptoms/episode began/occurred gradually, 7 jmm month(s) ago. Modifying factors: The symptoms are alleviated by nothing, the symptoms are aggravated by nothing. This is 44 year old male with a history of anxiety, copd that presents to the ED with complaints of dental pain which has been ongoing for the past 7 months. Patient also complains of palpitations on and off for the past 2 months. Patient states recently attempting to d/c etoh use. Patient was also recently switched from ativn to clonopin. . Historical: - Allergies: 16:48 Nubain; ca1 16:48 Stadol; ca1 16:48 tramadol; ca1 - Home Meds: 16:48 Adderall XR 20 mg Oral cp24 1 cap once daily [Active]; esomeprazole magnesium Oral ca1 [Active]; methadone 120mg daily [Active]; Probiotic Oral [Active]; Phenergan Oral as needed [Active]; Klonopin Oral [Active]; - PMHx: 16:48 ADD/ADHD; Anxiety; COPD; Sleep Apnea; Umbilical hernia; ca1 - PSHx: 16:48 back surgery; Appendectomy; Knee surgery; ca1 - Immunization history:: Adult Immunizations up to date, Flu vaccine is not up to date. - Social history:: Smoking status: Patient reports the use of cigarette tobacco products, denies chronic smoking, but will smoke occasionally, Patient uses street drugs, marijuana. ROS: 17:08 Constitutional: Negative for fever, chills, and weight loss, Respiratory: Negative for jmm shortness of breath, cough, wheezing, and pleuritic chest pain. 17:08 ENT: Positive for dental pain. 17:08 Cardiovascular: Positive for palpitations. 17:08 All other systems are negative. Exam: 17:08 Head/Face: atraumatic. Eyes: EOMI, no conjunctival erythema appreciated jmm 17:08 Neck: Trachea midline, Supple Chest/axilla: Normal chest wall appearance and motion. Cardiovascular: Regular rate and rhythm. No edema appreciated Respiratory: Normal respirations, no respiratory distress appreciated 17:08 Back: Normal ROM Skin: General appearance color normal MS/ Extremity: Moves all extremities, no obvious deformities appreciated, no edema noted to the lower extremities Neuro: Awake and alert, normal gait Psych: Behavior is normal, Mood is normal, Patient is cooperative and pleasant 17:08 Constitutional: The patient appears alert, awake, anxious. 17:08 ENT: Dental exam: dental caries, diffusely, fractured teeth are noted, diffusely. 17:08 Abdomen/GI: Inspection: abdomen appears normal, Bowel sounds: normal, Palpation: abdomen is soft and non-tender, in all quadrants. 17:59 ECG was reviewed by the Attending Physician. [facility] Vital Signs: 16:42 BP 132 / 91; Pulse 84; Resp 16 S; Temp 97.6(TE); Pulse Ox 98% on R/A; Weight 108.86 kg; ca1 Height 6 ft. 1 in. (185.42 cm) (R); Pain 7/10; 18:03 BP 118 / 77; Pulse 66; Resp 16; Temp 97.8(O); Pulse Ox 97% on R/A; mh5 18:28 BP 121 / 75; Pulse 66; Resp 16; Temp 98; Pulse Ox 100% ; bp 16:42 Body Mass Index 31.66 (108.86 kg, 185.42 cm) ca1 MDM: 16:50 Patient medically screened. margarita 18:10 Data reviewed: vital signs, nurses notes. Counseling: I had a detailed discussion with [facility] the patient and/or guardian regarding: the historical points, exam findings, and any diagnostic results supporting the discharge/admit diagnosis, lab results, radiology results, the need for outpatient follow up, to return to the emergency department if symptoms worsen or persist or if there are any questions or concerns that arise at home. ED course: Patient is alert and non toxic in appearance. I do not suspect an acute process. Patient is advised to follow up with dentist. Patient is otherwise given strict return precautions. Patient understood and agrees with the plan of care. . 03/10 17:07 Order name: Basic Metabolic Panel; Complete Time: 17:59 [facility] 03/10 17:07 Order name: CBC with Diff; Complete Time: 17:59 jmm 03/10 17:07 Order name: LFT's; Complete Time: 17:59 jmm 03/10 17:07 Order name: Magnesium; Complete Time: 17:59 jmm 03/10 17:07 Order name: NT PRO-BNP; Complete Time: 17:59 jmm 03/10 17:07 Order name: PT-INR; Complete Time: 17:59 jmm 03/10 16:58 Order name: EKG; Complete Time: 16:58 ca1 03/10 16:58 Order name: EKG - Nurse/Tech; Complete Time: 16:58 ca1 03/10 17:07 Order name: Troponin (emerg Dept Use Only); Complete Time: 17:59 jmm 03/10 17:08 Order name: XRAY Chest (1 view); Complete Time: 18:15 jmm 03/10 17:08 Order name: Cardiac monitoring; Complete Time: 17:23 jmm 03/10 17:08 Order name: IV Saline Lock; Complete Time: 17:23 jmm 03/10 17:08 Order name: Labs collected and sent; Complete Time: 17:23 jmm 03/10 17:08 Order name: O2 Per Protocol; Complete Time: 17:23 jmm 03/10 17:08 Order name: O2 Sat Monitoring; Complete Time: 17:23 jmm EC:59 Rate is 62 beats/min. Rhythm is regular. QRS Spencer is Normal. AR interval is normal. QRS jmm interval is normal. QT interval is normal. No Q waves. T waves are Normal. No ST changes noted. Reviewed by me. Administered Medications: 17:15 Drug: Ativan 1 mg Route: IVP; Site: right forearm; bp 18:29 Follow up: Response: Anxiety decreased bp Disposition: 03/11 10:56 Co-signature as Attending Physician, Jason Juan MD I agree with the assessment and margarita plan of care. Disposition: 03/10/20 18:14 Discharged to Home. Impression: Dental caries, Palpitations. - Condition is Stable. - Discharge Instructions: Dental Pain, Palpitations. - Prescriptions for Amoxicillin 875 mg Oral Tablet - take 1 tablet by ORAL route every 12 hours for 10 days; 20 tablet. - Medication Reconciliation Form, Thank You Letter, Antibiotic Education, Prescription Opioid Use form. - Follow up: Private Physician; When: 2 - 3 days; Reason: Recheck today's complaints, Continuance of care, Re-evaluation by your physician. Signatures: Dispatcher [employer] EDJason Tran MD MD cha Mickail, Joel, PA PA jmm Peltier, Brian, RN RN bp Tasneem Bowman RN RN ca1 Corrections: (The following items were deleted from the chart) 03/10 18:44 18:14 03/10/2020 18:14 Discharged to Home. Impression: Dental caries; Palpitations. bp Condition is Stable. Forms are Medication Reconciliation Form, Thank You Letter, Antibiotic Education, Prescription Opioid Use. Follow up: Private Physician; When: 2 - 3 days; Reason: Recheck today's complaints, Continuance of care, Re-evaluation by your physician. nola
--- NOTE | 2020-03-10 18:14 | ER ---
Nurse's Notes [facility] Name: Jonathan Hall Age: 44 yrs Sex: Male : 1975 Arrival Date: 03/10/2020 Time: 16:02 Bed 20 Private MD: Diagnosis: Dental caries;Palpitations Presentation: 03/10 16:42 Chief complaint: Patient states: Toothache, L upper front teeth x several months. Has ca1 not gotten to the dentist yet. States, "I also feel like my stomach has been bothering me like I have a humming bird in my chest and my belly for several months now. It comes and goes". Coronavirus screen: Client denies travel out of the [place] in the last 14 days. At this time, the client does not indicate any symptoms associated with coronavirus-19. Coronavirus screen: The client denies any previous COVID testing. Ebola Screen: Patient negative for fever greater than or equal to 101.5 degrees Fahrenheit, and additional compatible Ebola Virus Disease symptoms Patient denies exposure to infectious person. Patient denies travel to an Ebola-affected area in the 21 days before illness onset. No symptoms or risks identified at this time. Initial Sepsis Screen: Does the patient meet any 2 criteria? No. Patient's initial sepsis screen is negative. Does the patient have a suspected source of infection? No. Patient's initial sepsis screen is negative. Risk Assessment: Do you want to hurt yourself or someone else? Patient reports no desire to harm self or others. Onset of symptoms was March 10, 2020. 16:42 Method Of Arrival: Ambulatory ca1 16:42 Acuity: DEMARCUS 3 ca1 Triage Assessment: 16:45 General: Appears in no apparent distress. uncomfortable, Behavior is cooperative, bp appropriate for age, anxious. Pain: Complains of pain in mouth. EENT: Reports pain in mouth. Neuro: No deficits noted. Cardiovascular: No deficits noted. Respiratory: No deficits noted. GI: No signs and/or symptoms were reported involving the gastrointestinal system. : No signs and/or symptoms were reported regarding the genitourinary system. Derm: No deficits noted. Musculoskeletal: No deficits noted. Historical: - Allergies: 16:48 Nubain; ca1 16:48 Stadol; ca1 16:48 tramadol; ca1 - Home Meds: 16:48 Adderall XR 20 mg Oral cp24 1 cap once daily [Active]; esomeprazole magnesium Oral ca1 [Active]; methadone 120mg daily [Active]; Probiotic Oral [Active]; Phenergan Oral as needed [Active]; Klonopin Oral [Active]; - PMHx: 16:48 ADD/ADHD; Anxiety; COPD; Sleep Apnea; Umbilical hernia; ca1 - PSHx: 16:48 back surgery; Appendectomy; Knee surgery; ca1 - Immunization history:: Adult Immunizations up to date, Flu vaccine is not up to date. - Social history:: Smoking status: Patient reports the use of cigarette tobacco products, denies chronic smoking, but will smoke occasionally, Patient uses street drugs, marijuana. Screenin:45 Abuse screen: Denies threats or abuse. Denies injuries from another. Nutritional bp screening: No deficits noted. Tuberculosis screening: No symptoms or risk factors identified. Fall Risk None identified. Assessment: 16:45 General: SEE TRIAGE NOTE. bp 18:26 Reassessment: PT D/C HOME AMBULATORY WITH FAMILY, DX WITH DENTAL CARIES AND bp PALPITATIONS. Vital Signs: 16:42 BP 132 / 91; Pulse 84; Resp 16 S; Temp 97.6(TE); Pulse Ox 98% on R/A; Weight 108.86 kg; ca1 Height 6 ft. 1 in. (185.42 cm) (R); Pain 7/10; 18:03 BP 118 / 77; Pulse 66; Resp 16; Temp 97.8(O); Pulse Ox 97% on R/A; mh5 18:28 BP 121 / 75; Pulse 66; Resp 16; Temp 98; Pulse Ox 100% ; bp 16:42 Body Mass Index 31.66 (108.86 kg, 185.42 cm) ca1 ED Course: 16:02 Patient arrived in ED. ag5 16:45 Patient has correct armband on for positive identification. Bed in low position. Call bp light in reach. Side rails up X2. 16:46 Triage completed. ca1 16:48 Arm band placed on right wrist. ca1 16:50 Jefferson Gray PA is PHCP. [facility] 16:50 Jason Juan MD is Attending Physician. [facility] 16:52 Antwan Lucero RN is Primary Nurse. bp 17:20 Inserted saline lock: 20 gauge in right forearm, using aseptic technique. Blood bp collected. 18:02 XRAY Chest (1 view) In Process Unspecified. EDMS 18:04 Seizure precautions initiated. Warm blanket given. compliance monitor on. Pulse ox on. mh5 NIBP on. 18:28 No provider procedures requiring assistance completed. IV discontinued, intact, bp bleeding controlled, No redness/swelling at site. Pressure dressing applied. Administered Medications: 17:15 Drug: Ativan 1 mg Route: IVP; Site: right forearm; bp 18:29 Follow up: Response: Anxiety decreased bp Outcome: 18:14 Discharge ordered by MD. vaca 18:28 Discharged to home ambulatory, with family. bp 18:28 Condition: stable 18:28 Discharge instructions given to patient, Instructed on discharge instructions, follow up and referral plans. medication usage, Demonstrated understanding of instructions, follow-up care, medications, Prescriptions given X 1. 18:44 Patient left the ED. bp Signatures: Dispatcher [employer] EDMS Jefferson Gray PA PA jmm Martinez, [facility] Antwan Lucero RN RN bp Tasneem Bowman RN RN ca1 Hanh Aranda 5 Corrections: (The following items were deleted from the chart) 18:29 18:28 BP 118 / 77; Pulse 66bpm; Resp 16bpm; Pulse Ox 100%; Temp 98F; bp bp
[2020-03-10 20:13] VITALS: BP 121/75; TEMP 98; O2SAT 100
--- NOTE | 2020-03-11 07:26 | EKG ---
Test Date: 2020-03-10 Test Time: 16:59:36 Director Park: [place] MEASUREMENT RESULTS: Intervals: Rate: 62 DC: 142 QRSD: 96 QT: 418 QTc: 424 [place]: P: 32 DC: 142 QRS: 44 T: 55 INTERPRETIVE STATEMENTS: Normal sinus rhythm Normal ECG Compared to ECG 08/07/2018 13:31:06 Sinus bradycardia no longer present Left ventricular hypertrophy no longer present Electronically Signed On 03-11-20 07:24:47 CDT by Flaco Williamson
== END 2020-03-10 18:44 | disposition home or self-care (01) ==
LOC: ER 16:01
DX: K02.9 Dental caries, unspecified (principal); R00.2 Palpitations; F90.9 Attention-deficit hyperactivity disorder, unspecified type; J44.9 Chronic obstructive pulmonary disease, unspecified; F41.9 Anxiety disorder, unspecified; F17.210 Nicotine dependence, cigarettes, uncomplicated
CPT/HCPCS: 36415; 71045; 80048; 80076; 83735; 83880; 84484; 85025; 85610; 93005; 96374; 99284

== ENCOUNTER 2020-05-07 14:47 | Emergency (ER) | payer SELFPAY ==
--- NOTE | 2020-05-07 16:50 | ER ---
Nurse's Notes [facility] Name: oJnathan Hall Age: 44 yrs Sex: Male : 1975 Arrival Date: 05/07/2020 Time: 14:48 Bed 16 Private MD: Diagnosis: Disorder of teeth and supporting structures, unspecified Presentation: 05/07 15:14 Chief complaint: Patient states: "I have bad teeth and it's been bothering for while aa5 and now there is pus coming out of my teeth, for the last 2 days it's been worse and now I am nauseated and dizzy". Coronavirus screen: Client denies travel out of the [place] in the last 14 days. At this time, the client does not indicate any symptoms associated with coronavirus-19. Ebola Screen: Patient negative for fever greater than or equal to 101.5 degrees Fahrenheit, and additional compatible Ebola Virus Disease symptoms. Initial Sepsis Screen: Does the patient meet any 2 criteria? No. Patient's initial sepsis screen is negative. Does the patient have a suspected source of infection? No. Patient's initial sepsis screen is negative. Risk Assessment: Do you want to hurt yourself or someone else? Patient reports no desire to harm self or others. Onset of symptoms was April 2020. 15:14 Method Of Arrival: Ambulatory aa5 15:14 Acuity: DEMARCUS 3 aa5 Historical: - Allergies: 15:14 Nubain; aa5 15:14 Stadol; aa5 15:14 tramadol; aa5 - PMHx: 15:14 ADD/ADHD; Anxiety; COPD; Sleep Apnea; Umbilical hernia; Endocarditis; aa5 - PSHx: 15:14 back surgery; Appendectomy; Knee surgery; aa5 - Immunization history:: Adult Immunizations unknown. - Social history:: Smoking status: Patient/guardian denies using tobacco, but has a distant history of tobacco abuse. Screenin:19 Abuse screen: Denies threats or abuse. Nutritional screening: No deficits noted. ll1 Tuberculosis screening: No symptoms or risk factors identified. Fall Risk None identified. Total Eaton Fall Scale indicates No Risk (0-24 pts). Assessment: 16:50 General: Appears uncomfortable, Behavior is calm, cooperative, appropriate for age. ll1 Pain: Complains of pain in upper jaw/gums Quality of pain is described as aching, Pain began 2-3 days ago. Neuro: No deficits noted. Cardiovascular: No deficits noted. Respiratory: No deficits noted. EENT: Poor dentition noted. Reports pain in upper teeth/jaw. 17:20 Reassessment: No changes from previously documented assessment. Patient and/or family ll1 updated on plan of care and expected duration. Pain level reassessed. Patient is alert, oriented x 3, equal unlabored respirations, skin warm/dry/pink. Vital Signs: 15:17 BP 128 / 88; Pulse 80; Resp 16 S; Temp 98.9(O); Pulse Ox 99% on R/A; Weight 104.33 kg aa5 (R); Height 6 ft. 5 in. (195.58 cm) (R); Pain 10/10; 15:17 Body Mass Index 27.27 (104.33 kg, 195.58 cm) aa5 ED Course: 14:48 Patient arrived in ED. rg4 15:14 Arm band placed on. aa5 15:16 Triage completed. aa5 15:40 Ximena Carmona FNP-C is PHCP. kb 15:40 Vega Abdul MD is Attending Physician. kb 16:35 Jason Ochoa PA is PHCP. cp 16:35 Vega Abdul MD is Attending Physician. cp 16:41 Tomás Alonzo, DENZEL is Primary Nurse. ll1 17:19 Patient has correct armband on for positive identification. Bed in low position. Call ll1 light in reach. Side rails up X 1. Cardiac monitoring not applicable on this patient. 17:19 No provider procedures requiring assistance completed. Patient did not have IV access ll1 during this emergency room visit. Administered Medications: 16:50 Drug: Zofran (Ondansetron) 4 mg Route: PO; ll1 17:16 Follow up: Response: No adverse reaction; RASS: Alert and Calm (0) ll1 16:50 Drug: Tylenol #3 (300 mg-30 mg) 2 tabs {Note: rass 0.} Route: PO; ll1 17:16 Follow up: Response: No adverse reaction; RASS: Alert and Calm (0) ll1 16:58 Drug: TORadol 60 mg Route: IM; Site: left gluteus; ll1 17:17 Follow up: Response: No adverse reaction; RASS: Alert and Calm (0) [facility] Outcome: 16:49 Discharge ordered by . cp 17:19 Discharged to home ambulatory. [facility] 17:19 Condition: stable 17:19 Discharge instructions given to patient, Instructed on discharge instructions, follow up and referral plans. medication usage, Demonstrated understanding of instructions, follow-up care, medications, Prescriptions given X x 5 17:20 Patient left the ED. [facility] Signatures: Ximena Carmona, AYAN-C AYAN-Sheyla Dupree, RN RN aa5 Jason Ochoa PA PA Dede Solorzano rg4 Tomás Alonzo, RN RN ll1 Corrections: (The following items were deleted from the chart) 17:18 17:17 General: Appears uncomfortable, Behavior is calm, cooperative, appropriate for [facility] age, [facility] 17:18 17:17 Pain: Complains of pain in upper jaw/gums Quality of pain is described as aching, [facility] Pain began 2-3 days ago. [facility] 17:18 17:17 Neuro: No deficits noted. [place] [id number] 17:18 17:17 Cardiovascular: No deficits noted. [place] [id number] 17:18 17:17 Respiratory: No deficits noted. [place] [id number] 17:18 17:17 EENT: Poor dentition noted. Reports pain in upper teeth/jaw [place] [id number]
--- NOTE | 2020-05-07 16:50 | EDPHYS ---
Physician Documentation [facility] Name: Jonathan Hall Age: 44 yrs Sex: Male : 1975 Arrival Date: 05/07/2020 Time: 14:48 Bed 16 Private MD: ED Physician Vega Abdul HPI: 05/07 16:42 This 44 yrs old Male presents to ER via Ambulatory with complaints of cp Toothache. 16:42 The patient presents with pain. Onset: The symptoms/episode began/occurred gradually, cp and became worse 2 day(s) ago. Duration: The symptoms are continuous, and are steadily getting worse. Associated signs and symptoms: Pertinent positives: nausea, dizziness. Severity of symptoms: in the emergency department the symptoms are unchanged, despite home interventions. Historical: - Allergies: 15:14 Nubain; aa5 15:14 Stadol; aa5 15:14 tramadol; aa5 - PMHx: 15:14 ADD/ADHD; Anxiety; COPD; Sleep Apnea; Umbilical hernia; Endocarditis; aa5 - PSHx: 15:14 back surgery; Appendectomy; Knee surgery; aa5 - Immunization history:: Adult Immunizations unknown. - Social history:: Smoking status: Patient/guardian denies using tobacco, but has a distant history of tobacco abuse. ROS: 16:43 Constitutional: Negative for fever. cp 16:43 ENT: Positive for dental pain, Negative for difficulty swallowing, difficulty handling secretions. 16:43 Abdomen/GI: Positive for nausea, Negative for vomiting, diarrhea. 16:43 Neuro: Positive for dizziness. 16:43 All other systems are negative. Exam: 16:47 Head/Face: Normocephalic, atraumatic. cp 16:47 Constitutional: The patient appears in no acute distress, alert, awake, non-toxic, well developed, well nourished, obese. 16:47 Eyes: Periorbital structures: appear normal, Conjunctiva: normal, no exudate, no injection, Lids and lashes: appear normal, bilaterally. 16:47 ENT: External ear(s): are unremarkable, Nose: is normal, Mouth: Lips: moist, Oral mucosa: moist, Gums: pink, abscess, is not appreciated, Posterior pharynx: Airway: no evidence of obstruction, patent, Dental exam: abscess, is not appreciated, dental caries, that is severe, diffusely, missing teeth, diffusely. 16:47 Neck: ROM/movement: is normal, is supple, no meningismus, no nuchal rigidity. 16:47 Cardiovascular: Rate: normal. 16:47 Respiratory: the patient does not display signs of respiratory distress, Respirations: normal, no use of accessory muscles, no retractions. Vital Signs: 15:17 BP 128 / 88; Pulse 80; Resp 16 S; Temp 98.9(O); Pulse Ox 99% on R/A; Weight 104.33 kg aa5 (R); Height 6 ft. 5 in. (195.58 cm) (R); Pain 10/10; 15:17 Body Mass Index 27.27 (104.33 kg, 195.58 cm) aa5 MDM: 16:35 Patient medically screened. cp 16:45 Differential diagnosis: dental caries, gingivitis, dental abscess, pericoronitis. cp 16:48 Data reviewed: vital signs, nurses notes, and as a result, I will discharge patient. cp Counseling: I had a detailed discussion with the patient and/or guardian regarding: the historical points, exam findings, and any diagnostic results supporting the discharge/admit diagnosis, the need for outpatient follow up, for definitive care, a dentist. Administered Medications: 16:50 Drug: Zofran (Ondansetron) 4 mg Route: PO; ll1 17:16 Follow up: Response: No adverse reaction; RASS: Alert and Calm (0) ll1 16:50 Drug: Tylenol #3 (300 mg-30 mg) 2 tabs {Note: rass 0.} Route: PO; ll1 17:16 Follow up: Response: No adverse reaction; RASS: Alert and Calm (0) ll1 16:58 Drug: TORadol 60 mg Route: IM; Site: left gluteus; ll1 17:17 Follow up: Response: No adverse reaction; RASS: Alert and Calm (0) ll1 Disposition: 17:00 Chart complete. cp 17:32 Co-signature as Attending Physician, Vega Abdul MD I agree with the assessment and kdr plan of care. Disposition: 05/07/20 16:49 Discharged to Home. Impression: Disorder of teeth and supporting structures, unspecified. - Condition is Stable. - Discharge Instructions: Dental Caries, Adult, Dental Pain. - Prescriptions for Tylenol- Codeine #3 300-30 mg Oral Tablet - take 2 tablets by ORAL route every 8-12 hours As needed; 12 tablet. Zofran 4 mg Oral Tablet - take 1 tablet by ORAL route every 12 hours As needed; 20 tablet. Peridex 0.12 % Mucous Membrane mouthwash - place 15 milliliter by MUCOUS MEMBRANE route 2 times per day after brushing teeth, swish in mouth for 30 seconds then spit out; 1 bottle. Amoxicillin 875 mg Oral Tablet - take 1 tablet by ORAL route every 12 hours for 10 days; 20 tablet. Metronidazole 500 mg Oral Tablet - take 1 tablet by ORAL route every 8 hours; 30 tablet. - Medication Reconciliation Form, Thank You Letter, Antibiotic Education, Prescription Opioid Use form. - Follow up: Private Physician; When: 1 - 2 days; Reason: Recheck today's complaints. - Problem is chronic. - Symptoms have improved. Signatures: Vega Abdul MD MD [facility] Sheyla Mcgrath RN RN aa5 Jason Ochoa PA PA cp Tomás Alonzo RN RN ll1 Corrections: (The following items were deleted from the chart) 17:20 16:49 05/07/2020 16:49 Discharged to Home. Impression: Disorder of teeth and supporting ll1 structures, unspecified. Condition is Stable. Forms are Medication Reconciliation Form, Thank You Letter, Antibiotic Education, Prescription Opioid Use. Follow up: Private Physician; When: 1 - 2 days; Reason: Recheck today's complaints. Problem is chronic. Symptoms have improved. cp
[2020-05-07] MEDS ORDERED: CODEINE 30MG/APAP 300MG TAB ONE (16:59)
[2020-05-07] MEDS ORDERED: ONDANSETRON 4 MG (ODT) TAB ONE (17:00)
[2020-05-07] MEDS ORDERED: KETOROLAC 30 MG/ML INJ ONE (17:07)
[2020-05-10 15:46] VITALS: BP 128/88; TEMP 98.9; O2SAT 99
== END 2020-05-07 17:20 | disposition home or self-care (01) ==
LOC: ER 14:47
DX: K08.89 Other specified disorders of teeth and supporting structures (principal); Z88.5 Allergy status to narcotic agent
CPT/HCPCS: 96372; 99283

== ENCOUNTER 2020-05-13 14:36 | Emergency (ER) | payer SELFPAY ==
[2020-05-13 18:59] LABS: Basophils % 0.4 % (0-1.3); Lymphocytes % 15.8 % (15.3-44.8); MPV 9.9 fL (7.6-11.3); RBC Red Blood Cell Count 4.32 M/uL (4.33-5.43)
[2020-05-13] MEDS ORDERED: ONDANSETRON 4 MG/2 ML VIAL ONE (19:02)
[2020-05-13] MEDS ORDERED: MORPHINE 4 MG/ML SYR ONE (19:02)
[2020-05-13 19:03] LABS: Protime INR 1.16
[2020-05-13 19:10] LABS: BUN Blood Urea Nitrogen 6 mg/dL (7-18); Bicarbonate 30 mmol/L (21-32); Glucose Level 81 mg/dL (74-106); Potassium 3.7 mmol/L (3.5-5.1); Sodium Level 141 mmol/L (136-145)
--- NOTE | 2020-05-13 19:20 | RAD REPORT ---
EXAM DESCRIPTION: CT - CTFBWCON CLINICAL HISTORY: swelling upper lip Facial pain and swelling COMPARISON: HEAD BRAIN W O CONTRAST dated 03/06/2013; HEAD BRAIN W O CONTRAST dated 04/20/2012 TECHNIQUE: Axial 2 mm thick images of the face were obtained with sagittal and coronal reconstructio n images. All CT scans are performed using dose optimization technique as appropriate and may include automated exposure control or mA/KV adjustment according to patient size. FINDINGS: Significant soft tissue swelling is seen anterior to the maxilla. Irregular subperiosteal abscess is present anteriorly measuring 21 x 13 mm along the buccal surface of the maxilla. Erosion a long the anterior right maxilla is seen with subperiosteal abscess of 6 mm noted involving the right anterior first incisor. Several anterior crown erosions are seen involving the anterior maxillary rodolfo th. Multiple enlarged lymph nodes are seen in these submandibular region bilaterally, slightly more promi nent on the right. The largest visualize lymph node on the right measures 12 mm. IMPRESSION: Frontal maxillary right incisor demonstrates 6 mm subperiosteal abscess. Large anterior subperiosteal abscess measuring 21 x 13 mm is present.
[2020-05-13] MEDS ORDERED: LIDOCAINE 1% MPF 5 ML VIAL ONE (19:52)
[2020-05-13] MEDS ORDERED: LORazepam 2 MG/ML VIAL ONE (19:53)
[2020-05-13] MEDS ORDERED: BUPIVACAINE 0.5% PF 10 ML VIAL ONE (19:53)
[2020-05-13] MEDS ORDERED: PIPER/TAZO/NS 3.375gm 3.375 GM/100 ML BAG ONE (19:54)
--- NOTE | 2020-05-13 20:24 | ER ---
Nurse's Notes [facility] Name: Jonathan Hall Age: 44 yrs Sex: Male : 1975 Arrival Date: 05/13/2020 Time: 14:41 Bed 14 Private MD: Diagnosis: Other disorders of teeth and supporting structures-Right Frontal Maxillary Incisor Abscess;Dental caries Presentation: 05/13 15:13 Chief complaint: Patient states: Upper teeth dental pain for several months. Was here ll1 last Sunday for the same. Needs 5 teeth pulled. Coronavirus screen: Client denies travel out of the [place] in the last 14 days. At this time, the client does not indicate any symptoms associated with coronavirus-19. Ebola Screen: Patient denies travel to an Ebola-affected area in the 21 days before illness onset. Initial Sepsis Screen: Does the patient meet any 2 criteria? No. Patient's initial sepsis screen is negative. Does the patient have a suspected source of infection? Yes: Other: teeth. Risk Assessment: Do you want to hurt yourself or someone else? Patient reports no desire to harm self or others. Onset of symptoms was February 19, 2020. 15:13 Method Of Arrival: Ambulatory ll1 15:13 Acuity: DEMARCUS 4 ll1 Triage Assessment: 15:13 General: Appears uncomfortable, Behavior is calm, cooperative, appropriate for age. ll1 Pain: Complains of pain in upper teeth/jaw Quality of pain is described as aching, throbbing, Pain began 2+ months ago. EENT: Poor dentition noted. swelling noted to upper jaw. . Reports pain in upper mouth/jaw. Neuro: No deficits noted. Cardiovascular: No deficits noted. Respiratory: No deficits noted. Historical: - Allergies: 15:18 Nubain; ll1 15:18 Stadol; ll1 15:18 tramadol; ll1 - PMHx: 15:18 ADD/ADHD; Anxiety; COPD; ENDOCARDITIS; Sleep Apnea; Umbilical hernia; ll1 - PSHx: 15:18 back surgery; Appendectomy; Knee surgery; ll1 - Immunization history:: Flu vaccine is not up to date. - Social history:: Smoking status: Smoking status: Patient denies any tobacco usage or history of. Screenin:52 Abuse screen: Denies threats or abuse. Denies injuries from another. Nutritional ca1 screening: No deficits noted. Tuberculosis screening: No symptoms or risk factors identified. Fall Risk IV access (20 points). Assessment: 17:52 General: Appears in no apparent distress. comfortable, Behavior is calm, cooperative, ca1 appropriate for age. Pain: Complains of pain in face, scalp, mouth and neck Pain currently is 10 out of 10 on a pain scale. Is intermittent. Neuro: Level of Consciousness is awake, alert, obeys commands, Oriented to person, place, time, situation. Cardiovascular: Heart tones S1 S2 present Capillary refill < 3 seconds Patient's skin is warm and dry. Respiratory: Airway is patent Respiratory effort is even, unlabored, Respiratory pattern is regular, symmetrical, Breath sounds are clear bilaterally. GI: Abdomen is round non-distended, Bowel sounds present X 4 quads. Abd is soft and non tender X 4 quads. Reports nausea. : No signs and/or symptoms were reported regarding the genitourinary system. EENT: Poor dentition noted. Dental caries noted in upper right central incisor (#8) and upper left central incisor (#9). Derm: Skin is intact, is healthy with good turgor, Skin is pink, warm \T\ dry. Musculoskeletal: Circulation, motion, and sensation intact. Capillary refill < 3 seconds. 18:42 Reassessment: Patient appears in no apparent distress at this time. Patient and/or ca1 family updated on plan of care and expected duration. Pain level reassessed. Patient is alert, oriented x 3, equal unlabored respirations, skin warm/dry/pink. 19:49 Reassessment: Patient appears in no apparent distress at this time. Patient and/or ca1 family updated on plan of care and expected duration. Pain level reassessed. Patient is alert, oriented x 3, equal unlabored respirations, skin warm/dry/pink. 21:04 Reassessment: Patient appears in no apparent distress at this time. Patient is alert, ca1 oriented x 3, equal unlabored respirations, skin warm/dry/pink. Vital Signs: 15:13 BP 141 / 86; Pulse 88; Resp 18; Temp 99.1; Pulse Ox 97% on R/A; Weight 106.59 kg; ll1 Height 6 ft. 1 in. (185.42 cm); Pain 10/10; 18:42 BP 131 / 91; Pulse 79; Resp 16 S; Pulse Ox 98% on R/A; ca1 19:49 BP 117 / 89; Pulse 100; Resp 19 S; Pulse Ox 98% on R/A; ca1 20:58 BP 126 / 87; Pulse 70; Resp 16 S; Pulse Ox 96% on R/A; ca1 15:13 Body Mass Index 31.00 (106.59 kg, 185.42 cm) ll1 ED Course: 14:41 Patient arrived in ED. as 15:17 Triage completed. ll1 15:17 Arm band placed on. ll1 17:43 Jason Ochoa PA is PHCP. cp 17:43 Jason Juan MD is Attending Physician. cp 17:43 Tasneem Bowman RN is Primary Nurse. ca1 17:52 Patient has correct armband on for positive identification. Bed in low position. Call ca1 light in reach. Side rails up X 1. Pulse ox on. NIBP on. Warm blanket given. 18:38 Initial lab(s) drawn, by me, by EMS personnel. Inserted saline lock: 20 gauge in right ca1 forearm, using aseptic technique. Blood collected. 18:43 CT Facial Bones W/ Con \T\ Mpr In Process Unspecified. EDMS 19:50 Assist provider with I \T\ D: of an abscess on mouth Set up I\T\D tray. Performed by Jason patel 1 Gabriela SHOOK Patient tolerated well. 21:04 IV discontinued, intact, bleeding controlled, No redness/swelling at site. Pressure ca1 dressing applied. Administered Medications: 19:00 Drug: Zofran (Ondansetron) 4 mg Route: IVP; Site: right forearm; ca1 20:00 Follow up: Response: No adverse reaction; Nausea is decreased ca1 19:03 Drug: morphine 4 mg {Note: rass 0.} Route: IVP; Site: right forearm; ca1 20:00 Follow up: Response: No adverse reaction; Pain is decreased; RASS: Alert and Calm (0) ca1 19:42 Drug: Ativan 0.5 mg Route: IVP; Site: right forearm; ca1 20:00 Follow up: Response: No adverse reaction; Anxiety decreased ca1 19:50 Drug: Marcaine (0.5 %) 5 ml {Note: by BOONE Tran.} Volume: 10 ml; Route: ca1 Infiltration; 19:51 Drug: Lidocaine-Epinephrine -1%: (1:100,000) 5 ml {Note: by BOONE Tran.} Volume: 20 ca1 ml; Route: Infiltration; 19:54 Drug: Zosyn 3.375 grams Route: IVPB; Infused Over: 60 mins; Site: right forearm; ca1 21:02 Follow up: Response: No adverse reaction; IV Status: Completed infusion ca1 20:34 Drug: HYDROcodone-acetaminophen 10 mg-325 mg 1 tabs {Note: rass 0.} Route: PO; ca1 21:00 Follow up: Response: No adverse reaction; Pain is decreased; RASS: Alert and Calm (0) ca1 Outcome: 20:24 Discharge ordered by MD. cp 21:06 Discharged to home ambulatory, with significant other. ca1 21:06 Condition: stable 21:06 Discharge instructions given to patient, Instructed on discharge instructions, follow up and referral plans. no drinking with medication, no driving heavy equipment, medication usage, Demonstrated understanding of instructions, follow-up care, medications, Prescriptions given X 3. 21:07 Patient left the ED. ca1 Signatures: Dispatcher [employer] EDMS Jennifer Zarate Corey, PA PA cp Acob, Cheryl RN RN ca1 Tomás Alonzo RN RN ll1
--- NOTE | 2020-05-13 20:24 | EDPHYS ---
Physician Documentation [facility] Name: Jonathan Hall Age: 44 yrs Sex: Male : 1975 Arrival Date: 05/13/2020 Time: 14:41 Bed 14 Private MD: ED Physician Jason Juan HPI: 05/13 18:05 This 44 yrs old Male presents to ER via Ambulatory with complaints of Facial cp Swelling, Mouth Problem. 18:05 The patient presents with pain, swelling. cp 18:05 The problem is located in the frenulum and upper left central incisor (#9) and upper cp right central incisor (#8). Onset: The symptoms/episode began/occurred gradually, and became worse yesterday. Duration: The symptoms are continuous, and are steadily getting worse. Associated signs and symptoms: Pertinent negatives: dysphagia, fever, vomiting. 18:05 The patient has been recently seen at the [facility] Emergency cp Department, last week, for similar complaints was given a prescription for antibiotics, was given a prescription for pain medications. Patient reports he has been taking oral Amoxicillin but was unable to tolerate oral Metronidazole due to gastric burning. Had similar reaction when taking oral clindamycin. Historical: - Allergies: 15:18 Nubain; ll1 15:18 Stadol; ll1 15:18 tramadol; ll1 - PMHx: 15:18 ADD/ADHD; Anxiety; COPD; ENDOCARDITIS; Sleep Apnea; Umbilical hernia; ll1 - PSHx: 15:18 back surgery; Appendectomy; Knee surgery; ll1 - Immunization history:: Flu vaccine is not up to date. - Social history:: Smoking status: Smoking status: Patient denies any tobacco usage or history of. ROS: 18:10 Constitutional: Negative for body aches, chills, fever, poor PO intake. cp 18:10 Eyes: Negative for injury, pain, redness, and discharge. cp 18:10 ENT: Positive for dental pain, Negative for ear pain, sore throat, difficulty swallowing, difficulty handling secretions. 18:10 Cardiovascular: Negative for chest pain, edema, palpitations. 18:10 Respiratory: Negative for cough, shortness of breath, wheezing. 18:10 Abdomen/GI: Positive for nausea, Negative for abdominal pain, vomiting, diarrhea, constipation. 18:10 Skin: Positive for swelling, of the upper lip. 18:10 Neuro: Negative for altered mental status, headache, weakness. 18:10 All other systems are negative. Exam: 18:15 Constitutional: The patient appears in no acute distress, alert, awake, non-toxic, well cp developed, well nourished, uncomfortable. 18:15 Head/Face: Normocephalic, atraumatic. cp 18:15 Eyes: Periorbital structures: appear normal, Conjunctiva: normal, no exudate, no injection, Sclera: no appreciated abnormality, Lids and lashes: appear normal, bilaterally. 18:15 ENT: External ear(s): are unremarkable, Nose: is normal, Mouth: Lips: upper lip, mild swelling, Gums: noted to have an abscess, reddened, swollen, on the frenulum, Posterior pharynx: Airway: no evidence of obstruction, patent, Dental exam: dental caries, that is severe, diffusely, pain, that is moderate, specifically in the upper right central incisor (#8) and upper left central incisor (#9), Voice: is normal. 18:15 Neck: ROM/movement: is normal, is supple, without pain, no range of motions limitations, Lymph nodes: lymphadenopathy is appreciated, anterior cervical nodes. 18:15 Chest/axilla: Inspection: normal, Palpation: is normal, no crepitus, no tenderness. 18:15 Cardiovascular: Rate: normal, Rhythm: regular. 18:15 Respiratory: the patient does not display signs of respiratory distress, Respirations: normal, no use of accessory muscles, no retractions, labored breathing, is not present. 18:15 Abdomen/GI: Exam negative for discomfort, distension, guarding, Inspection: abdomen appears normal. Vital Signs: 15:13 BP 141 / 86; Pulse 88; Resp 18; Temp 99.1; Pulse Ox 97% on R/A; Weight 106.59 kg; ll1 Height 6 ft. 1 in. (185.42 cm); Pain 10/10; 18:42 BP 131 / 91; Pulse 79; Resp 16 S; Pulse Ox 98% on R/A; ca1 19:49 BP 117 / 89; Pulse 100; Resp 19 S; Pulse Ox 98% on R/A; ca1 20:58 BP 126 / 87; Pulse 70; Resp 16 S; Pulse Ox 96% on R/A; ca1 15:13 Body Mass Index 31.00 (106.59 kg, 185.42 cm) ll1 Procedures: 20:20 I \T\ D: Incision and drainage was performed for an abscess of the frenulum Anesthetized cp with 4 ccs of mixture 1% lidocaine and 0.5% marcaine. Incised with #11 blade. Drained moderate amount purulent fluid. the patient tolerated the procedure well. MDM: 17:45 Patient medically screened. margarita 20:23 Data reviewed: vital signs, nurses notes, lab test result(s), radiologic studies, CT cp scan, I have discussed the patient's presentation/case with the attending Emergency Department Physician; and as a result, I will discharge patient. 20:23 Counseling: I had a detailed discussion with the patient and/or guardian regarding: the cp historical points, exam findings, and any diagnostic results supporting the discharge/admit diagnosis, lab results, radiology results, the need for outpatient follow up, for definitive care, a dentist, to return to the emergency department if symptoms worsen or persist or if there are any questions or concerns that arise at home. Response to treatment: the patient's symptoms have markedly improved after treatment. 20:24 ED course: VSS. Patient given IV Zosyn and new RX for oral Augmentin. Appears cp non-toxic. Will discharge to home to f/u with dentist. 05/13 18:04 Order name: CBC with Diff; Complete Time: 19:23 cp 05/13 18:04 Order name: BMP; Complete Time: 19:23 cp 05/13 18:04 Order name: PT-INR; Complete Time: 19:23 cp 05/13 18:04 Order name: CT Facial Bones W/ Con \T\ Mpr; Complete Time: 19:23 cp 05/13 18:04 Order name: IV; Complete Time: 18:37 cp 05/13 19:30 Order name: I\T\D Setup; Complete Time: 19:42 cp Administered Medications: 19:00 Drug: Zofran (Ondansetron) 4 mg Route: IVP; Site: right forearm; ca1 20:00 Follow up: Response: No adverse reaction; Nausea is decreased ca1 19:03 Drug: morphine 4 mg {Note: rass 0.} Route: IVP; Site: right forearm; ca1 20:00 Follow up: Response: No adverse reaction; Pain is decreased; RASS: Alert and Calm (0) ca1 19:42 Drug: Ativan 0.5 mg Route: IVP; Site: right forearm; ca1 20:00 Follow up: Response: No adverse reaction; Anxiety decreased ca1 19:50 Drug: Marcaine (0.5 %) 5 ml {Note: by PA. Marc} Volume: 10 ml; Route: ca1 Infiltration; 19:51 Drug: Lidocaine-Epinephrine -1%: (1:100,000) 5 ml {Note: by PA. Marc} Volume: 20 ca1 ml; Route: Infiltration; 19:54 Drug: Zosyn 3.375 grams Route: IVPB; Infused Over: 60 mins; Site: right forearm; ca1 21:02 Follow up: Response: No adverse reaction; IV Status: Completed infusion ca1 20:34 Drug: HYDROcodone-acetaminophen 10 mg-325 mg 1 tabs {Note: rass 0.} Route: PO; ca1 21:00 Follow up: Response: No adverse reaction; Pain is decreased; RASS: Alert and Calm (0) ca1 Disposition: 05/13/20 20:24 Discharged to Home. Impression: Other disorders of teeth and supporting structures - Right Frontal Maxillary Incisor Abscess, Dental caries. - Condition is Stable. - Discharge Instructions: Dental Abscess. - Prescriptions for Augmentin 875- 125 mg Oral Tablet - take 1 tablet by ORAL route every 12 hours for 10 days; 20 tablet. Tylenol- Codeine #3 300-30 mg Oral Tablet - take 2 tablets by ORAL route every 8-10 hours As needed; 15 tablet. Ibuprofen 800 mg Oral Tablet - take 1 tablet by ORAL route every 8 hours As needed take with food; 30 tablet. - Medication Reconciliation Form, Thank You Letter, Antibiotic Education, Prescription Opioid Use form. - Follow up: Private Physician; When: 2 - 3 days; Reason: Recheck today's complaints. - Problem is an ongoing problem. - Symptoms have improved. Addendum: 05/15/2020 11:38 Co-signature as Attending Physician, Jason Juan MD I agree with the assessment and c obrien plan of care. Signatures: Dispatcher [employer] EDJason Tran MD MD cha Page, Corey, PA PA cp Acob, Cheryl, RN RN ca1 Clinton, Lynsay, RN RN ll1 Corrections: (The following items were deleted from the chart) 05/13 21:07 20:24 05/13/2020 20:24 Discharged to Home. Impression: Other disorders of teeth and ca1 supporting structures - Right Frontal Maxillary Incisor Abscess; Dental caries. Condition is Stable. Forms are Medication Reconciliation Form, Thank You Letter, Antibiotic Education, Prescription Opioid Use. Follow up: Private Physician; When: 2 - 3 days; Reason: Recheck today's complaints. Problem is an ongoing problem. Symptoms have improved. cp
[2020-05-13] MEDS ORDERED: HYDROCODONE/APAP 10/325 TAB ONE (20:47)
[2020-05-13 21:16] VITALS: TEMP 99.1
[2020-05-13 21:20] VITALS: BP 126/87; O2SAT 96
== END 2020-05-13 21:07 | disposition home or self-care (01) ==
LOC: ER 14:36
PROC: 0C9WXZ0 Drainage of Upper Tooth, External Approach, Single (ICD-10-PCS; principal; 2020-05-13)
DX: K04.7 Periapical abscess without sinus (principal); K02.9 Dental caries, unspecified; Z88.5 Allergy status to narcotic agent; Z88.6 Allergy status to analgesic agent; Z88.8 Allergy status to other drugs, medicaments and biological substances
CPT/HCPCS: 36415; 70487; 76377; 80048; 82565; 85025; 85610; 96365; 96375; 99284; J2405; J2543; Q9967

== ENCOUNTER 2023-09-10 08:30 | Emergency (ER) | payer SELFPAY ==
[2023-09-10] MEDS ORDERED: FAMOTIDINE 20 MG/2 ML VIAL IV ONE (09:17)
[2023-09-10] MEDS ORDERED: ONDANSETRON 4 MG/2 ML VIAL ONE (09:17)
[2023-09-10 09:49] LABS: Absolute Eosinophils 0.1 K/uL (0-0.5); Absolute Lymphocytes (CBC) 0.9 K/uL (0.7-4.9); Absolute Monocytes 0.5 K/uL (0.1-1.3); Absolute Neutrophil 2.4 K/uL (1.8-8.0); Eosinophils % 1.9 % (0-4.4); Hematocrit 39.4 % (39.6-49.0); Hemoglobin 13.1 g/dL (13.6-17.9); Lymphocytes % 23.4 % (15.3-44.8); MCH 32.2 pg (27.0-35.0); MCHC 33.3 g/dL (32.0-36.0); MCV 96.7 fL (80-100); MPV 9.7 fL (7.6-11.3); Monocytes % 11.8 % (3.3-12.3); Neutrophils % 61.9 % (41.7-73.7); Nucleated Red Blood Cells % 0.1 % (0-0); Platelets 108 thou/uL (152-406); RBC Red Blood Cell Count 4.07 M/uL (4.33-5.43); Red Cell Distribution Width 13.8 % (12.1-15.2)
[2023-09-10 10:04] LABS: Albumin 3.2 g/dL (3.4-5.0); Albumin/Globulin Ratio 0.8 (1.1-1.8); Bilirubin Total 0.3 mg/dL (0.2-1.0); Globulin 3.8 g/dL (2.3-3.5)
[2023-09-10 11:02] LABS: Specific Gravity > 1.030 (1.005-1.030); Sqamous Epithelial <5 /HPF (None Seen); Urine Bacteria None Seen /HPF (<20); Urine Bilirubin NEGATIVE (Negative); Urine Blood Negative (Negative); Urine Clarity Clear (Clear); Urine Color Light-Yellow (Yellow); Urine Culture Reflex Order NOT NEEDED; Urine Glucose NEGATIVE (Negative); Urine Ketones NEGATIVE (Negative); Urine Microscopic Reflex YN ORDER UMIC; Urine Mucus Slight /HPF (None Seen); Urine Nitrite NEGATIVE (Negative); Urine Protein NEGATIVE (Negative); Urine Urobilinogen Normal (Normal); Urine WBC <5 /HPF (<5)
--- NOTE | 2023-09-10 11:53 | RAD REPORT ---
EXAM DESCRIPTION: CT - Abdomen Pelvis W Contrast - 09/10/2023 10:16 am CLINICAL HISTORY: ABD PAIN COMPARISON: Abdomen Pelvis W Contrast dated 07/30/2018; CT ABD PELVIS W CONTRAST dated 11/06/2013; C T ABD PELVIS W CONTRAST dated 08/06/2013; CT ABD PELVIS W CONTRAST dated 04/07/2013 TECHNIQUE: Thin cut axial CT imaging of the abdomen and pelvis was performed following intravenous a dministration of 100 mL Isovue 300. Multiplanar reformats were generated and reviewed. All CT scans are performed using dose optimization technique as appropriate and may include automated exposure control or mA/KV adjustment according to patient size. FINDINGS: No suspicious findings in the lung bases. Elevation of the left hemidiaphragm limits evalu ation. The liver shows stable regional contour nodularity along the inferior right lobe. Adrenal glands, spl een, and pancreas show no suspicious findings. Gallbladder and biliary tree are also without suspicio us finding. Symmetric renal function is seen with no hydronephrosis or suspicious renal mass. No dilated bowel loops or bowel wall thickening. No free air, free fluid or inflammatory stranding. N o hernia, mass or bulky lymphadenopathy. The urinary bladder is without significant finding. No suspicious bony findings. Stable anterior wedge compression deformities at T12 and L1. Partially i ncluded posterior fusion hardware with polyp gauge along the thoracic spine. IMPRESSION: No acute intra-abdominal process. Stable findings as above.
--- NOTE | 2023-09-10 12:25 | EDPHYS ---
Physician Documentation [facility] Name: Jonathan Hall Age: 48 yrs Sex: Male : 1975 Arrival Date: 09/10/2023 Time: 08:30 Bed 20 Private MD: ED Physician Tom Bowman HPI: 09/09 12:25 This 48 yrs old Male presents to ER via Ambulatory with complaints of Abdominal Pain, ms3 Nausea. 12:25 48-year-old male with past medical history of ADD ADHD, anxiety, chronic pain, COPD, ms3 endocarditis, umbilical hernia presents to the emergency department for generalized abdominal pain that has been ongoing for years. Patient states his pain is currently 7/10. Patient endorses nausea, denies vomiting. Patient denies any alleviating or inciting factors.. Historical: - Allergies: 08:47 Nubain; aa5 08:47 Stadol; aa5 08:47 tramadol; aa5 - PMHx: 08:47 ADD/ADHD; Anxiety; chronic back pain; COPD; ENDOCARDITIS; Sleep Apnea; Umbilical hernia;aa5 - Immunization history:: Adult Immunizations unknown. - Infectious Disease History:: Denies. - Social history:: Smoking status: Patient denies any tobacco usage or history of. ROS: 12:25 Constitutional: Negative for fever, and chills. Neck: Negative for injury, pain, and ms3 swelling, Cardiovascular: Negative for chest pain, and palpitations. Respiratory: Negative for shortness of breath, cough, wheezing, and pleuritic chest pain, Back: Negative for injury and pain, 12:25 Skin: Negative for injury, rash, and discoloration, Neuro: Negative for headache, weakness, numbness, tingling. 12:25 Abdomen/GI: Positive for abdominal pain, nausea, Exam: 12:25 Constitutional: This is a well developed, well nourished patient who is awake, alert, ms3 and in no acute distress. Head/Face: Normocephalic, atraumatic. Neck: Trachea midline, no cervical lymphadenopathy. Supple, full range of motion without nuchal rigidity, or vertebral point tenderness. No Meningismus. Chest/axilla: Normal chest wall appearance and motion. Nontender with no deformity. Cardiovascular: Regular rate and rhythm with a normal S1 and S2. No gallops, murmurs, or rubs. Normal PMI, no JVD. No pulse deficits. Respiratory: Lungs have equal breath sounds bilaterally, clear to auscultation and percussion. No rales, rhonchi or wheezes noted. No increased work of breathing, no retractions or nasal flaring. Abdomen/GI: Soft, non-tender, with normal bowel sounds. No distension or tympany. No guarding or rebound. No evidence of tenderness throughout. Skin: Warm, dry with normal turgor. Normal color with no rashes, no lesions, and no evidence of cellulitis. MS/ Extremity: Pulses equal, no cyanosis. Neurovascular intact. Full, normal range of motion. Vital Signs: 08:46 BP 135 / 86; Pulse 66; Resp 18 S; Temp 97.8(TE); Pulse Ox 99% on R/A; Weight 104.33 kg aa5 (R); Height 6 ft. 0 in. (R); 11:30 BP 127 / 83; Pulse 68; Resp 18; Pulse Ox 98% on R/A; ph 13:30 BP 118 / 72; Pulse 61; Resp 18; Temp 98; Pulse Ox 99% on R/A; ph 08:46 Body Mass Index 31.19 (104.33 kg, 182.88 cm) aa5 MDM: 08:53 Patient medically screened. ms3 12:25 Differential diagnosis: Nonspecific abd pain, Obstruction. Data reviewed: vital signs, ms3 nurses notes, lab test result(s), radiologic studies, and as a result, I will discharge patient. I considered the following discharge prescriptions or medication management in the emergency department Medications were administered in the Emergency Department. See MAR. Counseling: I had a detailed discussion with the patient and/or guardian regarding the historical points, exam findings, and any diagnostic results supporting the discharge/admit diagnosis, lab results, radiology results, the need for outpatient follow up, to return to the emergency department if symptoms worsen or persist or if there are any questions or concerns that arise at home. ED course: Discussed labs and imaging with patient and his . Patient to follow-up with primary care physician in 2 to 3 days. Patient requests surgical referral to Dr. Zarate. Dr. Zarate contact information given to patient and his . All questions were answered. Return precautions discussed include worsening symptoms, or any other concerns. On reevaluation patient is alert and oriented x 4, no apparent distress, nontoxic-appearing, ambulatory emerged primary, speaking full sentences, abdominal exam benign. 09/09 09:00 Order name: CBC with Diff; Complete Time: 11:09 ms3 09/09 09:00 Order name: CMP; Complete Time: 11:09 ms3 09/09 09:00 Order name: Lipase; Complete Time: 11:09 ms3 09/09 09:00 Order name: Urinalysis w/ reflexes; Complete Time: 11: ms3 09/09 09:00 Order name: CT Abd/Pelvis - IV Contrast Only; Complete Time: 12:00 ms3 09/09 09:00 Order name: IV Saline Lock; Complete Time: 09:46 ms3 09/09 09:00 Order name: Labs collected and sent; Complete Time: 09:46 ms3 Administered Medications: 09:46 Drug: Famotidine IVP 20 mg IVP once; dilute with 10 mL 0.9% NaCl; give over 2 minutes ph Route: IVP; Site: right antecubital; 10:15 Follow up: Response: No adverse reaction ph 09:47 Drug: Ondansetron IVP 4 mg IVP once; over 2 minutes Route: IVP; Site: right antecubital;ph 10:15 Follow up: Response: No adverse reaction ph Disposition Summary: 09/10/23 12:25 Discharge Ordered Notes: Location: Home ms3 Condition: Stable ms3 Diagnosis - Abdominal pain, unspecified ms3 Followup: ms3 - With: Nathan Zarate MD - When: 2 - 3 days - Reason: Recheck today's complaints Discharge Instructions: - Discharge Summary Sheet ms3 - Abdominal Pain, Adult ms3 Forms: - Medication Reconciliation Form ms3 - Thank You Letter ms3 - Antibiotic Education ms3 - Prescription Opioid Use ms3 - Patient Portal Instructions ms3 - Leadership Thank You Letter ms3 Signatures: Dispatcher [employer] Sheyla Grant RN RN aa5 Yany Murillo RN RN ph Tom Bowman DO DO ms3
--- NOTE | 2023-09-10 12:25 | ER ---
Nurse's Notes [facility] Name: Jonathan Hall Age: 48 yrs Sex: Male : 1975 Arrival Date: 09/10/2023 Time: 08:30 Bed 20 Private MD: Diagnosis: Abdominal pain, unspecified Presentation: 09/09 08:46 Chief complaint: Patient states: generalized abd pain "for a while", reports nausea, aa5 denies vomiting. 08:46 Method Of Arrival: Ambulatory aa5 08:46 Coronavirus screen: At this time, the client does not indicate any symptoms associated aa5 with coronavirus-19. Ebola Screen: Patient denies travel to an Ebola-affected area in the 21 days before illness onset. Initial Sepsis Screen: Does the patient meet any 2 criteria? No. Patient's initial sepsis screen is negative. Does the patient have a suspected source of infection? No. Patient's initial sepsis screen is negative. Risk Assessment: Do you want to hurt yourself or someone else? Patient reports no desire to harm self or others. Onset of symptoms was August 2023. 08:46 Acuity: DEMARCUS 3 aa5 Historical: - Allergies: 08:47 Nubain; aa5 08:47 Stadol; aa5 08:47 tramadol; aa5 - PMHx: 08:47 ADD/ADHD; Anxiety; chronic back pain; COPD; ENDOCARDITIS; Sleep Apnea; Umbilical hernia;aa5 - Immunization history:: Adult Immunizations unknown. - Infectious Disease History:: Denies. - Social history:: Smoking status: Patient denies any tobacco usage or history of. Screenin:12 [place] ED Fall Risk Assessment (Adult) History of falling in the last 3 months, ph including since admission No falls in past 3 months (0 pts) Confusion or Disorientation No (0 pts) Intoxicated or Sedated No (0 pts) Impaired Gait No (0 pts) Mobility Assist Device Used No (0 pt) Altered Elimination No (0 pt) Score/Fall Risk Level 0 - 2 = Low Risk Oriented to surroundings, Maintained a safe environment, Hourly rounding (assess needs \\T\\ fall precautionary measures) done. Abuse screen: Denies threats or abuse. Denies injuries from another. Nutritional screening: No deficits noted. Tuberculosis screening: No symptoms or risk factors identified. Assessment: 11:11 General: Appears in no apparent distress. Behavior is calm, cooperative. Pain: ph Complains of pain in epigastric area and left upper quadrant. Neuro: Level of Consciousness is awake, alert, obeys commands, Oriented to person, place, time, situation. Cardiovascular: Capillary refill < 3 seconds in bilateral fingers Patient's skin is warm and dry. Respiratory: Airway is patent Respiratory effort is even, unlabored. GI: Abdomen is non-distended, Reports upper abdominal pain, nausea. Derm: Skin is pink, warm \\T\\ dry. Vital Signs: 08:46 BP 135 / 86; Pulse 66; Resp 18 S; Temp 97.8(TE); Pulse Ox 99% on R/A; Weight 104.33 kg aa5 (R); Height 6 ft. 0 in. (R); 11:30 BP 127 / 83; Pulse 68; Resp 18; Pulse Ox 98% on R/A; ph 13:30 BP 118 / 72; Pulse 61; Resp 18; Temp 98; Pulse Ox 99% on R/A; ph 08:46 Body Mass Index 31.19 (104.33 kg, 182.88 cm) aa5 ED Course: 08:32 Patient arrived in ED. im 08:33 Tom Bowman DO is Attending Physician. ms3 08:45 Arm band placed on. aa5 08:47 Triage completed. aa5 09:13 Yany Murillo, RN is Primary Nurse. ph 09:47 Initial lab(s) drawn, by dc, sent to lab. Inserted saline lock: 20 gauge in right ph antecubital area, using aseptic technique. Blood collected. 10:18 CT Abd/Pelvis - IV Contrast Only In Process Unspecified. EDMS 11:12 Patient has correct armband on for positive identification. Bed in low position. Call ph light in reach. Pulse ox on. NIBP on. Door closed. Noise minimized. Lights dimmed. Warm blanket given. 12:25 Nathan Zarate MD is Referral Physician. ms3 12:54 No provider procedures requiring assistance completed. IV discontinued, intact, ph bleeding controlled, No redness/swelling at site. Pressure dressing applied. Administered Medications: 09:46 Drug: Famotidine IVP 20 mg IVP once; dilute with 10 mL 0.9% NaCl; give over 2 minutes ph Route: IVP; Site: right antecubital; 10:15 Follow up: Response: No adverse reaction ph 09:47 Drug: Ondansetron IVP 4 mg IVP once; over 2 minutes Route: IVP; Site: right antecubital;ph 10:15 Follow up: Response: No adverse reaction ph Medication: 11:12 VIS not applicable for this client. ph Outcome: 12:25 Discharge ordered by . ms3 12:59 Discharged to home ambulatory, with significant other, ph 12:59 Condition: good 12:59 Discharge instructions given to patient, significant other, Instructed on discharge instructions, follow up and referral plans. Demonstrated understanding of instructions, follow-up care, 13:00 Patient left the ED. ph Signatures: Dispatcher [employer] EDMS Sheyla Mcgrath RN RN aa5 Yany Murillo RN RN ph Tom Bowman DO DO ms3 [place] Saab
[2023-09-10 13:18] VITALS: BP 135/86; TEMP 97.8; O2SAT 99
== END 2023-09-10 13:00 | disposition home or self-care (01) ==
LOC: ER 08:30
DX: R10.84 Generalized abdominal pain (principal)
CPT/HCPCS: 36415; 74177; 80053; 81001; 83690; 85025; 96374; 96375; 99284; J2405; Q9967

== ENCOUNTER 2025-01-05 14:07 | Emergency (ER) | payer SELFPAY ==
--- OUTSIDE RECORDS SUMMARY | 2025-01-05 14:16 | XMS REPORT | Continuity of Care Document ---
Author Name Unknown Address [address] [facility] [place] [address] Organization [facility] [place] Address [address] [facility] [place] [address] Care Team Providers Care Manager Distribution Center Name Role Phone FRANCK CRISTHIAN Primary Care Physician Unav ailable LEV HAINES Attending Clinician Unavailable LEV HAINES Attending Clinician Unavailable Lev Haines MD Attending Clinician [phone] ZAYDA HESS Attending Clinician Unavailable ZAYDA HESS Attending Clinician Unavailable Zayda Hess CNP Attending Clinician [phone] LEV HAINES Admitting Clinician Unavailable ZAYDA HESS Admitting Clinician Unavailable Problems Condition Name Condition Details Condition Category Status Onset Date Resolution Date Last Treatment Date Treating Clinician Comments Source Suicidal ideation Suicidal ideation Disease Active 01-08 00:00: 00 [facility] Allergies, Adverse Reactions, Alerts Allergy Name Allergy Type Status Severity Reaction(s) Onset Date Inactive Date Treating Clinician Comments Source NO KNOWN ALLERGIE S Drug Class Active [facility] Social History Social Habit Start Date Stop Date Quantity Comments Source Sexual orientation U [facility] Sex assigned at 1975 00:00:00 1975 00:00:00 [facility] Smoking Status Start Date Stop Date Source Tobacco smoking consumption unknown [facility] Medications Ordered Medication Name Filled Medication Name Start Date Stop Date Current Medication? Ordering Clinician Indication Dosage Frequency Signature (SIG) Comments Components Source iopamidol (ISOVUE 370-500 mL) injection 80 mL 09-12 05:45: 00 09-12 05:45 :00 No [id number] 80mL 80 mL, Intravenou s, ONCE, 1 dose, On Sun09/12/24 at 0045, Routine [facility] ketorolac (TORADOL) injection 30 mg 09-12 04:30: 00 09-12 03:46 :00 No 30mg 30 mg, Slow IV Push, ONCE, 1 dose, On Julita 09/11/24 at 2330, Routine [facility] ketorolac 10 mg tablet 09-12 00:00: 00 Yes [id number] 10mg Take 1 tablet by mouth every 6 (six) hours as needed for Pain (scale 7-10). [facility] ketorolac (TORADOL) injection 30 mg 2023-05 17:30: 00 04-28 19:11 :00 No 30mg 30 mg, Intramuscu lar, ONCE, 1 dose, On Sun04/28/24 at 1130, ASHLEY [facility] ketorolac 10 mg tablet 2023-05 00:00: 00 Yes [id number] 10mg Take 1 tablet by mouth every 6 (six) hours as needed for Pain (scale 4-6) for up to 20 doses. [facility] BACTRIM ORAL 01-08 10:06: 16 Yes None Entered [facility] SEROQUEL 100 MG ORAL TAB 01-08 00:00: 00 Yes QHS [facility] CELEXA 20 MG ORAL TAB 01-08 00:00: 00 Yes daily [facility] CLONIDINE 0.2 MG ORAL TAB 01-26 00:00: 00 Yes 1 Tab Oral BID [facility] Vital Signs Vital Name Observation Time Observation Value Comments S pablito Systolic blood pressure 2024-09-12 05:05:00 112 mm[Hg] [facility] Diastolic blood pressure 2024-09-12 05:05:00 75 mm[Hg] [facility] Heart rate 2024-09-12 05:05:00 54 /min [facility] Body temperature 2024-09-12 05:05:00 36.78 Sasha [facility] Respiratory rate 2024-09-12 05:05:00 18 /min [facility] Oxygen saturation in Arterial blood by Pulse oximetry 2024-09-12 05:05:00 96 /min [facility] Body height 2024-09-12 02:45:00 185.4 cm [facility] Body weight 2024-09-12 02:45:00 99.791 kg [facility] BMI 2024-09-12 02:45:00 29.03 kg/m2 [facility] Systolic blood pressure 2024-04-28 19:45:00 130 mm[Hg] [facility] Diastolic blood pressure 2024-04-28 19:45:00 82 mm[Hg] [facility] Heart rate 2024-04-28 19:45:00 52 /min [facility] Respiratory rate 2024-04-28 19:45:00 16 /min [facility] Oxygen saturation in Arterial blood by Pulse oximetry 2024-04-28 19:45:00 96 /min [facility] Body temperature 2024-04-28 17:01:00 36.78 Sasha [facility] Body height 2024-04-28 17:00:00 182.9 cm [facility] Body weight 2024-04-28 17:00:00 104.327 kg [facility] BMI 2024-04-28 17:00:00 31.19 kg/m2 [facility] Procedures Procedure Date / Time Performed Performing Clinicia n Source CT ABDOMEN PELVIS W CONTRAST 2024-09-12 04:46:04 Lev Haines [facility] LIPASE 2024-09-12 03:45:00 Lev Haines [facility] COMP. METABOLIC PANEL (21602) 2024-09-12 03:45:00 Lev Haines [facility] CBC WITH DIFF 2024-09-12 03:45:00 Lev Haines [facility] URINALYSIS 2024-09-12 03:45:00 Lev Haines [facility] LACTIC ACID WHOLE BLOOD 2024-09-12 03:45:00 Lev Haines [facility] Encounters Start Date/Time End Date/Time Encounter Type Admission Type Attending Clinicians Care Facility Care Department Encounter ID Source 2024-09-11 21:48:00 2024-09-12 01:02:00 Emergency X LEV HAINSE WAKILI [facility] ERT [id number] [facility] 2024-09-11 21:48:00 2024-09-12 01:02:00 Emergency Lev Haines [facility] [id number] [facility] 2024-04-28 11:01:00 2024-04-28 14:34:00 Emergency X ZAYDA HESS KELSIE [facility] ERT [id number] [facility] 2024-04-28 11:01:00 2024-04-28 14:34:00 Emergency Zayda Hess [facility] [id number] [facility] Results Test Description Test Time Test Comments Results Result Comments Source CT Abdomen pelvis w contrast 05:32:35 ORDERING PHYSICIAN:LEV FREIRE CLINICAL INFORMATION: ? Abdominal pain, hernia suspected LEFT INGUINAL/GROIN PAIN COMPARISON: None Technique: ? CT of the abdomen and pelvis was performed after theadministration of IV contrast. No p.o. contrast was used. Multiplanarreformats were also obtained. This study was performed according to ALARAprinciple for radiation dose reduction. Findings: There is no evidence of obstructive uropathy. No suspicious renalparenchymal abnormality is are seen. Liver, gallbladder, spleen, adrenalglands, and pancreas show no evidence of gross abnormalities. There is nobowel obstruction. There is no evidence of appendicitis. No freeintraperitoneal air or fluid are present. No pathologically enlarged lymphnodes are seen. No distinct inguinal or ventral hernias are seen. Lungbases remain clear. No suspicious focal osseous lesions are seen. Chronicand postsurgical changes are seen involving the thoracolumbar spine. [facility] Notes Date/Time Note Provider Source 2024-09-12 01:02:00 Patient alert, resp even/unlabored, no distress noted on room air. This RN reviewed discharge packet (AVS) with patient and fiance at bedside including follow up care, medications, S/S, and when to call 911 or seek care at nearest emergency room. Pt and fiance verbalized understanding and all questions/concerns answered. Pt's PIV access removed, catheter intact, no complications. Pt denied wheelchair transport off unit. Pt ambulated off unit with even, steady gait and all belongings accompanied by fiance. Shamika Craig RN [facility] 2024-09-12 00:57:04 Assumed care from Shamika MAHONEY. Venessa Iqbal RN [facility] 2024-09-11 21:44:56 Pt states last while in the shoulder his inguinal hernia popped out, he was able to push it back in but is still having pain. Selina Olson RN [facility] 2024-09-11 21:36:00 [facility] Emergency Department Note Patient Name: Domenic Hall Date of : 1975 49 year old male Treatment Room: NM6/[facility] Primary Care Physician: Cristhian Flores Patient Escorted by: Self [9] Mode of Arrival: Personal means [1] EMS Treatment Prior to ED Arrival: NEW PATIENT ESCORT treatment: None Travel and Exposure Screening: Symptoms Does patient have any of these symptoms?: (not recorded) Exposure Screening Has patient had contact with someone with a communicable disease in the last month?: (not recorded) Diseases exposed to:: (not recorded) Is Patient ?: (not recorded) Exposure Date: (not recorded) Chief Complaint: Chief Complaint Patient presents with HERNIA History of Present Illness: Domenic Hall is a 49 year old male who presents to the ED accompanied by his fiancee for evaluation of left groin pain. Pt reports that last night while using the restroom, the hernia protruded but he was able to reduce it. Pt reports that he has had the hernia for about 6 years which occurred after a heavy lifting. Pt has had to reduce it twice in the past 6 years.. Pain last HS was reportedly severe. No fever. Has nausea No vomiting. Pt has not taken any analgesics for the pain. Pt has never been evaluated for the hernia in the past. 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 Abdominal Pain Pain location: LLQ Pain quality: sharp Pain radiates to: Groin and LLQ Pain severity: Severe Onset quality: Gradual Duration: 2 days Chronicity: Recurrent Context: not diet changes, not eating, not laxative use, not medication withdrawal, not previous surgeries, not recent illness, not recent travel, not retching, not sick contacts, not suspicious food intake and not trauma Relieved by: None tried Worsened by: Nothing Ineffective treatments: None tried Associated symptoms: constipation and nausea Associated symptoms: no anorexia, no diarrhea, no fever, no flatus, no hematemesis, no hematochezia, no hematuria, no melena, no shortness of breath, no sore throat and no vomiting Risk factors: no aspirin use, not elderly, has not had multiple surgeries, no NSAID use, not obese and no recent hospitalization Past Medical History/Immunizations: 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 Past Surgical History: Knee Surgery Review of Systems: Review of Systems Constitutional: Negative. Negative for fever. HENT: Negative. Negative for sore throat. Eyes: Negative. Respiratory: Negative. Negative for shortness of breath and wheezing. Breasts: Negative. Cardiovascular: Negative. Gastrointestinal: Positive for abdominal pain, constipation and nausea. Negative for anorexia, blood in stool, diarrhea, flatus, hematemesis, hematochezia, melena, rectal pain and vomiting. Genitourinary: Negative. Negative for hematuria. Musculoskeletal: Negative. Skin: Negative. Neurological: Negative. Psychiatric/Behavioral: Negative. All other systems reviewed and are negative. Endocrine: Endocrine negative Physical Exam: ED Triage Vitals [09/11/245] Weight 99.8 kg (220 lb) Actual or estimated Actual Height 1.854 m (6' 1") BP 122/88 Pulse 60 Resp 18 Temp 36.9 ?C (98.4 ?F) Temp source Oral SpO2 95 % Measured on Room air Physical Exam Vitals and nursing note reviewed. Constitutional: General: He is not in acute distress. Appearance: Normal appearance. He is well-developed and normal weight. He is not ill-appearing, toxic-appearing or diaphoretic. HENT: Head: Normocephalic and atraumatic. Nose: Nose normal. No congestion or rhinorrhea. Mouth/Throat: Mouth: Mucous membranes are moist. Pharynx: Oropharynx is clear. No oropharyngeal exudate or posterior oropharyngeal erythema. Eyes: General: No scleral icterus. Right eye: No discharge. Left eye: No discharge. Extraocular Movements: Extraocular movements intact. Conjunctiva/sclera: Conjunctivae normal. Pupils: Pupils are equal, round, and reactive to light. Cardiovascular: Rate and Rhythm: Normal rate and regular rhythm. Pulses: Normal pulses. Heart sounds: Normal heart sounds. No murmur heard. Pulmonary: Effort: Pulmonary effort is normal. No respiratory distress. Breath sounds: Normal breath sounds. No stridor. No wheezing, rhonchi or rales. Chest: Chest wall: No tenderness. Abdominal: General: Bowel sounds are normal. There is no distension. Palpations: Abdomen is soft. There is no mass. Tenderness: There is no abdominal tenderness. There is no right CVA tenderness, left CVA tenderness, guarding or rebound. Hernia: No hernia is present. Genitourinary: Penis: Normal. Testes: Normal. Comments: Uncircumcised well developed male genitalia Musculoskeletal: General: No swelling, tenderness, deformity or signs of injury. Normal range of motion. Cervical back: Normal range of motion and neck supple. No rigidity or tenderness. Right lower leg: No edema. Lymphadenopathy: Cervical: No cervical adenopathy. Skin: General: Skin is warm and dry. Capillary Refill: Capillary refill takes less than 2 seconds. Coloration: Skin is not jaundiced or pale. Findings: No bruising, erythema, lesion or rash. Neurological: General: No focal deficit present. Mental Status: He is alert and oriented to person, place, and time. Mental status is at baseline. Cranial Nerves: No cranial nerve deficit. Sensory: No sensory deficit. Motor: No weakness. Coordination: Coordination normal. Gait: Gait normal. Deep Tendon Reflexes: Reflexes normal. Psychiatric: Mood and Affect: Mood normal. Behavior: Behavior normal. Thought Content: Thought content normal. Judgment: Judgment normal. Radiology: CT Abdomen pelvis w contrast Final Result ORDERING PHYSICIAN:LEV HAINES CLINICAL INFORMATION: Abdominal pain, hernia suspected LEFT INGUINAL/GROIN PAIN COMPARISON: None Technique: CT of the abdomen and pelvis was performed after the administration of IV contrast. No p.o. contrast was used. Multiplanar reformats were also obtained. This study was performed according to ALARA principle for radiation dose reduction. Findings: There is no evidence of obstructive uropathy. No suspicious renal parenchymal abnormality is are seen. Liver, gallbladder, spleen, adrenal glands, and pancreas show no evidence of gross abnormalities. There is no bowel obstruction. There is no evidence of appendicitis. No free intraperitoneal air or fluid are present. No pathologically enlarged lymph nodes are seen. No distinct inguinal or ventral hernias are seen. Lung bases remain clear. No suspicious focal osseous lesions are seen. Chronic and postsurgical changes are seen involving the thoracolumbar spine. IMPRESSION 1. No bowel obstruction, appendicitis, free air, free fluid, or focal loculated fluid collections. 2. No abdominal wall hernias identified. END OF REPORT [id number] Lab Results: Lab Results CBC WITH DIFF - Abnormal Result Value Ref Range WBC 5.76 4.20 - 10.70 10*3/?L RBC 4.12 (*) 4.26 - 5.52 10*6/?L HGB 13.4 12.2 - 16.4 g/dL HCT 40.8 38.4 - 49.3 % MCV 99.0 (*) 81.7 - 95.6 fL MCH 32.5 26.1 - 32.7 pg MCHC 32.8 31.2 - 35.0 g/dL RDW-SD 45.9 38.5 - 51.6 fL RDW-CV 12.6 12.1 - 15.4 % PLT 111 (*) 150 - 328 10*3/?L MPV 11.2 9.8 - 13.0 fL IPF % 3.5 1.2 - 10.7 % NRBC/100 WBC 0.0 0.0 - 10.0 /100 WBCs NRBC x10 3 <0.01 10*3/?L GRAN MAT (NEUT) % 67.4 % IMM GRAN % 0.20 % LYMPH % 19.6 % MONO % 11.8 % EOS % 0.7 % BASO % 0.3 % GRAN MAT x10 3 (ANC) 3.88 1.99 - 6.95 10*3/uL IMM GRAN x10 3 <0.03 0.00 - 0.06 10*3/uL LYMPH x10 3 1.13 1.09 - 3.23 10*3/uL MONO x10 3 0.68 0.36 - 1.02 10*3/uL EOS x10 3 0.04 (*) 0.06 - 0.53 10*3/uL BASO x10 3 <0.03 0.01 - 0.09 10*3/uL URINALYSIS - Abnormal APPEARANCE Clear Clear COLOR Yellow Yellow PH 5.0 4.8 - 8.0 SP GRAVITY 1.021 1.003 - 1.030 GLU U QUAL Normal Normal BLOOD Negative Negative KETONES Negative Negative PROTEIN Negative Negative UROBILIN Normal Normal BILIRUBIN Negative Negative NITRITE Negative Negative LEUK FRED 25/uL (*) Negative RBC/HPF 9 (*) 0 - 3 HPF WBC/HPF 7 (*) 0 - 5 HPF BACTERIA Negative Negative MUCOUS Slight (*) Negative LPF SQ EPITH 3 HPF LIPASE - Normal LIPASE 57 0 - 220 U/L LACTIC ACID WHOLE BLOOD - Normal LACTIC ACID 1.07 0.50 - 2.20 mmol/L COMP. METABOLIC PANEL (00444) NA 138 135 - 145 mmol/L K 3.7 3.5 - 5.0 mmol/L CL 103 98 - 108 mmol/L CO2 TOTAL 31 23 - 31 mmol/L AGAP 4 2 - 16 BUN 17 7 - 23 mg/dL GLUCOSE 79 70 - 110 mg/dL CREATININE 0.71 0.60 - 1.25 mg/dL TOTAL BILI 0.5 0.1 - 1.1 mg/dL CALCIUM 9.0 8.6 - 10.6 mg/dL T PROTEIN 7.9 6.3 - 8.2 g/dL ALBUMIN 4.2 3.5 - 5.0 g/dL ALK PHOS 64 34 - 122 U/L ALTv 41 5 - 50 U/L AST(SGOT) 35 13 - 40 U/L eGFR 113.2 mL/min/1.73m2 Orders and Treatments: Orders Placed This Encounter Procedures CT Abdomen pelvis w contrast Cbc with Diff Comp. Metabolic Panel (83257) Lipase Lactic Acid Whole Blood Lactic Acid Whole Blood Urinalysis Orders Placed This Encounter Medications ketorolac (TORADOL) injection 30 mg iopamidol (ISOVUE 370-500 mL) injection 80 mL ketorolac 10 mg tablet First Provider Eval: ED Events None ED COURSE Diagnosis/Impression as of 09/12/24 0108 Left inguinal hernia Left groin pain Procedures: Procedures MDM: Medical Decision Making Domenic Hall is a 49 year old male who presents to the ED with left inguinal pain and suspected left inguinal hernia Problems Addressed: Left groin pain: acute illness or injury Left inguinal hernia: acute illness or injury Details: Reduced spont Amount and/or Complexity of Data Reviewed Labs: ordered. Decision-making details documented in ED Course. Radiology: ordered. Decision-making details documented in ED Course. Risk OTC drugs. Prescription drug management. Flowsheet Documentation: Scoring Tools: No data recorded Disposition/Condition: ED Disposition ED Disposition Discharge Condition Stable Comment -- Discharge Medications: Patient's Medications START taking these medications KETOROLAC 10 MG TABLET Take 1 tablet by mouth every 6 (six) hours as needed for Pain (scale 7-10). CONTINUE taking these medications which have NOT CHANGED BACTRIM ORAL None Entered CELEXA 20 MG ORAL TAB daily CLONIDINE 0.2 MG ORAL TAB 1 Tab Oral BID KETOROLAC 10 MG TABLET Take 1 tablet by mouth every 6 (six) hours as needed for Pain (scale 4-6) for up to 20 doses. NEURONTIN ORAL None Entered SEROQUEL 100 MG ORAL TAB QHS START taking Modified Medications as Prescribed No medications on file STOP taking these medications No medications on file Follow-up: Contact information for follow-up Cristhian Flores Specialty: PRIMITIVO-NURSE PRACTITIONER Relationship: PCP - General [address] [facility] [address] Dina Matthews MD Specialty: SURGERY [facility] [address] [facility] [address] [facility] [address] Kari Boykin MD Specialty: COLON & RECTAL SURGERY [facility] [address] [facility] [address] Lauren Womack MD Specialty: SURGERY [facility] [address] [facility] [address] Electronically signed by: Lev Haines MD 09/12/24107 T [facility] 2024-04-28 14:34:09 Pt discharged to home. Discharge instructions given to pt regarding prescription usage, management of condition and instructions to follow up with PCP. Pt verbalized understanding. Splint in place by ortho surgery on the right arm. Patient in possession of all belongings. Pt ambulates to lobby with steady gait. [facility] Rehan Salcedo RN [facility] 2024-04-28 13:37:47 Ortho surgery at bedside. [facility] 2024-04-28 13:17:58 Domenic Hall is a 48 year old male presents to ED 135 aox4 and via wheelchair for cc of pain in right wrist and right 5th toe. Pt rates pain 10/10. He reports that the pain started 3 weeks ago sp fall when playing with dog. Pt reports hitting head during fall, but unsure of LOC. Pt drowsy in room but states that the drowsiness and due to lack of sleep. No signs of distress noted. 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 [facility] 2024-04-28 10:57:54 Domenic Hall is a 48 year old male presents to ED c/o right toe problem, Pt reports last week noticed it approx 1 week ago noticed purplish black area around 4th and 5th toe. Denies any known injury. Reports he fell and broke his wrist approx 2 weeks ago and pain has traveled up his arm. Has not seen anyone for the wrist problem due to financial issues. Pt is aox4 with gcs 15 skin warm and dry resp even and unlabored. Pt placed in green pool due to ED saturation. Ellington RN [facility]
[2025-01-05] MEDS ORDERED: MORPHINE 4 MG/ML SYR ONE (14:37)
[2025-01-05] MEDS ORDERED: ONDANSETRON 4 MG/2 ML VIAL ONE (14:37)
[2025-01-05] MEDS ORDERED: NA CHLORIDE 0.9% 1,000 ML ONE (14:37)
[2025-01-05] MEDS ORDERED: LORazepam 2 MG/ML VIAL ONE ×2 (14:47→17:48)
[2025-01-05 15:27] LABS: Sqamous Epithelial None Seen /HPF (None Seen); Urine Crystals Unidentified Few /HPF (None Seen); Urine Culture Reflex Order NOT NEEDED; Urine Microscopic Reflex YN ORDER UMIC; Urine WBC Clump Rare /HPF (None Seen); Urine Yeast (Budding) Trace /HPF (None Seen)
[2025-01-05 15:37] LABS: Absolute Lymphocytes (CBC) 0.9 K/uL (0.7-4.9); Hematocrit 39.4 % (39.6-49.0); Hemoglobin 13.2 g/dL (13.6-17.9); MCH 32.3 pg (27.0-35.0); MCHC 33.5 g/dL (32.0-36.0); MCV 96.3 fL (80-100); MPV 8.7 fL (7.6-11.3); Nucleated RBC Absolute Count 0.0 (0-0); Nucleated Red Blood Cells % 0.0 % (0-0); RBC Red Blood Cell Count 4.09 M/uL (4.33-5.43); White Blood Count 4.50 thou/uL (4.3-10.9)
[2025-01-05 15:56] LABS: ALT/SGPT 35.0 U/L (16-61); AST/SGOT 25.0 U/L (15-37); Albumin 3.3 g/dL (3.4-5.0); Albumin/Globulin Ratio 0.8 (1.1-1.8); Alkaline Phosphatase 56.0 U/L (45-117); Anion Gap 6.7 mEq/L (5.0-15.0); BUN Blood Urea Nitrogen 17.0 mg/dL (7-18); Globulin 3.9 g/dL (2.3-3.5); Glucose Level 109.0 mg/dL (74-106); Lipase 14.0 U/L (13-75); Potassium 3.7 mEq/L (3.5-5.1)
--- NOTE | 2025-01-05 16:23 | RAD REPORT ---
EXAMINATION: CT ABDOMEN AND PELVIS WITH CONTRAST CLINICAL INDICATION: Abdominal pain TECHNIQUE: CT abdomen and pelvis was performed, after the administration of 100 cc Isovue-300.. Sagit amish and coronal reconstructions were obtained. One or more of the following dose reduction techniques were used: Automated exposure control, adjustment of the mA and kV according to patient si ze, and iterative reconstruction. Unless otherwise specified, incidental findings do not require dedicated imaging follow-up. [id number]. Oral contrast was not given which limits evaluation of bowel and appendix. COMPARISON: .None FINDINGS: Cirrhotic liver suspected. Small hepatic cyst. Old compression deformities involve the thoracic and lumbar spine. Post surgical changes thoracic spi ne., The spleen, pancreas, adrenals and kidneys appear unremarkable No evidence of diverticulitis. Rectum is mildly distended with stool. Moderate amount of liquid and regular stool present throughout the colon. Chin catheter within the bladder. Small left inguinal hernia : IMPRESSION: Moderate amount stool throughout the colon. Mild rectal distention with stool may indicate a fecal im paction.
[2025-01-05] MEDS ORDERED: FLEET ENEMA ADULT PR ONE (16:30)
[2025-01-05] MEDS ORDERED: MAGNESIUM CITRATE 300 ML BOT ONE (16:30)
[2025-01-05] MEDS ORDERED: BISACODYL 10 MG RECTAL SUPP ONE (17:25)
--- NOTE | 2025-01-05 20:38 | EDPHYS ---
Physician Documentation [facility] Name: Jonathan Hall Age: 49 yrs Sex: Male : 1975 Arrival Date: 01/05/2025 Time: 14:07 Bed 20 Private MD: ED Physician Tom Bowman HPI: 01/05 19:05 This 49 yrs old Male presents to ER via Ambulatory with complaints of dr5 Constipation, Urinary Problem, Nausea. 19:05 Onset: The symptoms/episode began/occurred 2 day(s) ago. Patient is a 49-year-old male dr5 with history of ADD, anxiety, chronic back pain, COPD, endocarditis, cirrhosis of liver coming in with 2 days of not having a bowel movement or passing gas as well as difficulty urinating. Patient denies chest pain, upper abdominal pain, nausea, vomiting, diarrhea. Patient has tried mag citrate at home without relief. Patient states that he tried to feel in his rectum on his own and felt hard stool.. Historical: - Allergies: 14:21 Nubain; aa5 14:21 Stadol; aa5 14:21 tramadol; aa5 - PMHx: 14:21 ADD/ADHD; Anxiety; chronic back pain; COPD; ENDOCARDITIS; Sleep Apnea; Umbilical hernia;aa5 - PSHx: 14:21 Appendectomy; back (Unknown); knee (Unknown); aa5 - Immunization history:: Adult Immunizations unknown. - Infectious Disease History:: Denies. - Social history:: Smoking status: Patient denies any tobacco usage or history of. ROS: 19:05 Constitutional: as per hpi dr5 Exam: 19:05 Constitutional: This is a well developed, well nourished patient who is awake, alert, dr5 and in no acute distress. Head/Face: Normocephalic, atraumatic. Eyes: Pupils equal round and reactive to light, extra-ocular motions intact. Lids and lashes normal. Conjunctiva and sclera are non-icteric and not injected. Cornea within normal limits. Periorbital areas with no swelling, redness, or edema. Neck: Trachea midline, no thyromegaly or masses palpated, and no cervical lymphadenopathy. Supple, full range of motion without nuchal rigidity, or vertebral point tenderness. No Meningismus. Chest/axilla: Normal chest wall appearance and motion. Nontender with no deformity. No lesions are appreciated. Cardiovascular: Regular rate and rhythm with a normal S1 and S2. Normal PMI, no JVD. No pulse deficits. Respiratory: Lungs have equal breath sounds bilaterally, clear to auscultation. No rales, rhonchi or wheezes noted. No increased work of breathing, no retractions or nasal flaring. Abdomen/GI: Soft, non-tender, non-distended. Mild tenderness noted to left lower quadrant Skin: Warm, dry with normal turgor. Normal color with no rashes, no lesions, and no evidence of cellulitis. MS/ Extremity: Pulses equal, no cyanosis. Neurovascular intact. Full, normal range of motion. Neuro: Awake and alert, GCS 15, oriented to person, place, time, and situation. Cranial nerves II-XII grossly intact. Motor strength 5/5 in all extremities. Sensory grossly intact. Cerebellar exam normal. Normal gait. Vital Signs: 14:21 BP 136 / 86; Pulse 76; Resp 18 S; Temp 97.1(TE); Pulse Ox 99% on R/A; Weight 99.79 kg aa5 (R); Height 6 ft. 0 in. (R); 15:00 BP 122 / 79; Pulse 57; Resp 18; Pulse Ox 100% ; ar8 16:06 BP 133 / 87; Pulse 65; Resp 17; Pulse Ox 99% ; ar8 16:54 BP 125 / 76; Pulse 62; Resp 18; Pulse Ox 98% ; kj2 17:59 BP 118 / 83; Pulse 66; Resp 18; Pulse Ox 100% on R/A; kj2 18:53 BP 123 / 86; Pulse 62; Resp 18; Pulse Ox 98% ; kj2 21:05 BP 121 / 78; Pulse 63; Resp 18; Pulse Ox 99% on R/A; kd3 14:21 Body Mass Index 29.84 (99.79 kg, 182.88 cm) aa5 Procedures: 19:15 Chin cath balloon deflated, removed intact, Patient tolerated well. dr5 20:12 Fecal disimpaction: digital disimpaction was performed, with a moderate amount of stool dr5 expressed. The patient tolerated the intervention well, Patient showed constipation and stool impaction on CT scan. Patient failed suppository as well as magnesium citrate in ER. Obtained verbal consent for procedure. Lubrication used for digital disimpaction. No complications. Patient reports feeling better and had small BM on his own afterwards. DENZEL Hernandez present during exam.. MDM: 14:15 Medical Screening Exam initiated dr5 19:17 ED course: Patient was given mag citrate and suppository. Patient kindly declined dr5 enema. Patient states that he would like to have the Chin removed to try to have another bowel movement. . 20:26 Differential diagnosis: viral Infection, bacterial infection, Constipation, dr5 pancreatitis, urinary tract infection. Data reviewed: vital signs, nurses notes, lab test result(s), amylase and lipase, CBC, white blood cell count, hemoglobin, hematocrit, platelets, electrolytes, sodium, potassium, chloride, serum bicarbonate, BUN, creatinine, serum glucose, urinalysis, radiologic studies, CT scan. Consideration of Admission/Observation Escalation of care including admission/observation considered. Admission considered patient found to have bowel obstruction. I considered the following discharge prescriptions or medication management in the emergency department I discussed and recommended Over The Counter medications, Medications were administered in the Emergency Department. See MAR. Care significantly affected by the following chronic conditions: ADD, anxiety, chronic back pain, COPD, endocarditis, sleep apnea. Care significantly affected by the following Social Determinants of Health: Poor access to healthcare and/or lack of insurance, Poor access to transportation, Problems related to employment. Counseling: I had a detailed discussion with the patient and/or guardian regarding the historical points, exam findings, and any diagnostic results supporting the discharge/admit diagnosis, the presence of at least one elevated blood pressure reading (>120/80) during this emergency department visit, lab results, radiology results, the need for outpatient follow up, for definitive care, a family practitioner, a [employer], to return to the emergency department if symptoms worsen or persist or if there are any questions or concerns that arise at home. Medication response: Dulcolax, Ativan. Response to treatment: the patient's symptoms have markedly improved after treatment. Special discussion: I discussed with the patient/guardian in detail that at this point there is no indication for admission to the hospital. It is understood, however, that if the symptoms persist or worsen the patient needs to return immediately for re-evaluation. Based on the history and exam findings, there is no indication for further emergent testing or inpatient evaluation. I discussed with the patient/guardian the need to see the [employer] for further evaluation of the symptoms. ED course: Constipation is markedly improved after disimpaction. Will send patient home on bowel regimen with medications for constipation and have patient follow-up with GI. All question answered. Strict ER precautions were given. 01/05 14:37 Order name: CBC with Diff; Complete Time: 15:45 dr5 01/05 14:37 Order name: CMP; Complete Time: 15:56 dr5 01/05 14:37 Order name: Lipase; Complete Time: 15:56 [facility] 01/05 14:37 Order name: UA Rfx Ravi Cult if indicated; Complete Time: 15:34 dr5 01/05 14:37 Order name: CT Abd/Pelvis - IV Contrast Only; Complete Time: 16:25 dr5 01/05 14:37 Order name: IV Saline Lock; Complete Time: 15:13 01/05 14:37 Order name: Labs collected and sent; Complete Time: 15:13 dr5 01/05 14:37 Order name: Chin; Complete Time: 15:13 [facility] 01/05 15:20 Order name: Labs - recollect needed: recollect green and lavender top; Complete Time: bd 15:30 Administered Medications: 15:00 Drug: Ondansetron IVP 4 mg IVP once; over 2 minutes Route: IVP; Site: left antecubital; ar8 15:00 Drug: NS 0.9% IV 1000 ml IV at 1 bolus Per protocol; to be given as a bolus over 60 ar8 minutes Route: IV; Rate: 1 bolus; Site: left antecubital; 15:02 Drug: morphine IVP or IV 4 mg IVP once over 4 mins Route: IVP; Infused Over: 4 mins; ar8 Site: left antecubital; 15:07 Drug: Ativan IVP 1 mg IVP once Route: IVP; Site: left antecubital; ar8 17:52 Follow up: Response: No adverse reaction kj2 16:34 Drug: Magnesium Citrate PO Liquid 300 ml PO once Route: PO; kj2 17:36 Drug: Dulcolax NV Suppository 10 mg NV once Route: NV; kj2 17:52 Drug: Ativan IVP 1 mg IVP once Route: IVP; Site: left antecubital; kj2 21:04 Not Given (Patient Refused): fleet [id number] ml NV once; may repeat once kd3 Disposition: 20:02 I was immediately available on-site in the Emergency Department for consultation in the ms3 care of the patient. Disposition Summary: 01/05/25 20:37 Discharge Ordered Notes: Location: Home dr5 Condition: Stable dr5 Diagnosis - Constipation dr5 Followup: dr5 - With: Emergency Department - When: As needed - Reason: Worsening of condition Followup: dr5 - With: Private Physician - When: 1 - 2 days - Reason: Recheck today's complaints, Continuance of care, Re-evaluation by your physician Discharge Instructions: - Discharge Summary Sheet dr5 - Constipation, Adult dr5 Forms: - Medication Reconciliation Form dr5 - Patient Portal Instructions dr5 - Leadership Thank You Letter dr5 Prescriptions: - Miralax 17 gram Oral powder in packet - take 1 packet ORAL route daily as needed for constipation; 10 packet; Refills: dr5 0, Product Selection Permitted - senna 8.6 mg Oral tablet - take 1 tablet ORAL route 2 times per day Take 48 hours after if no BM.; 10 dr5 tablet; Refills: 0, Product Selection Permitted - Colace 100 mg Oral Tablet - take 1 tablet ORAL route every 12 hours; 14 tablet; Refills: 0, Product dr5 Selection Permitted Signatures: Dispatcher [employer] EDMS Cheyanne Rodriguez Audri, RN RN aa5 Tom Bowman DO DO ms3 Eneida Zhao RN RN kj2 Ab Johns, [employer]-Cdr5 Sami Martínez RN RN ar8 Mary Mercado RN kd3 Corrections: (The following items were deleted from the chart) 20:57 20:12 Fecal disimpaction: digital disimpaction was performed, with a moderate amount of dr5 stool expressed. The patient tolerated the intervention well, Patient showed constipation and stool impaction on CT scan. Patient failed suppository as well as magnesium citrate in ER. Obtained verbal consent for procedure. Lubrication used for digital disimpaction. No complications. Patient reports feeling better and had small BM on his own afterwards. , dr5
--- NOTE | 2025-01-05 20:38 | ER ---
Nurse's Notes [facility] Name: Jonathan Hall Age: 49 yrs Sex: Male : 1975 Arrival Date: 01/05/2025 Time: 14:07 Bed 20 Private MD: Diagnosis: Constipation Presentation: 01/05 14:21 Chief complaint: Patient states: "I"ve been constipated for days and I haven't peed aa5 since Sunday, just small dribbles". Pt reports no appetite and reports hasn't been eating or drinking for the last 2 days. 14:21 Coronavirus screen: At this time, the client does not indicate any symptoms associated aa5 with coronavirus-19. Ebola Screen: Patient denies travel to an Ebola-affected area in the 21 days before illness onset. Initial Sepsis Screen: Does the patient meet any 2 criteria? No. Patient's initial sepsis screen is negative. Does the patient have a suspected source of infection? No. Patient's initial sepsis screen is negative. Risk Assessment: Do you want to hurt yourself or someone else? Patient reports no desire to harm self or others. Onset of symptoms was December 2024. 14:21 Method Of Arrival: Ambulatory aa5 14:21 Acuity: DEMARCUS 3 aa5 Historical: - Allergies: 14:21 Nubain; aa5 14:21 Stadol; aa5 14:21 tramadol; aa5 - PMHx: 14:21 ADD/ADHD; Anxiety; chronic back pain; COPD; ENDOCARDITIS; Sleep Apnea; Umbilical hernia;aa5 - PSHx: 14:21 Appendectomy; back (Unknown); knee (Unknown); aa5 - Immunization history:: Adult Immunizations unknown. - Infectious Disease History:: Denies. - Social history:: Smoking status: Patient denies any tobacco usage or history of. Screenin:00 [facility] ED Fall Risk Assessment (Adult) History of falling in the last 3 months, ar8 including since admission No falls in past 3 months (0 pts) Confusion or Disorientation No (0 pts) Intoxicated or Sedated No (0 pts) Impaired Gait No (0 pts) Mobility Assist Device Used No (0 pt) Altered Elimination No (0 pt) Score/Fall Risk Level 0 - 2 = Low Risk Oriented to surroundings, Maintained a safe environment. Abuse screen: Denies threats or abuse. Nutritional screening: No deficits noted. Tuberculosis screening: No symptoms or risk factors identified. Assessment: 14:45 General: Appears uncomfortable, Behavior is cooperative, restless. Pain:. Neuro: No ar8 deficits noted. Level of Consciousness is awake, alert, obeys commands, Oriented to person, place, time, situation. Cardiovascular: No deficits noted. Respiratory: No deficits noted. Airway is patent Respiratory effort is even, unlabored, Respiratory pattern is regular, symmetrical. GI: Reports nausea. : Reports inability to void. 16:54 Reassessment: Patient appears in no apparent distress at this time. Patient and/or kj2 family updated on plan of care and expected duration. Pain level reassessed. Patient is alert, oriented x 3, equal unlabored respirations, skin warm/dry/pink. 17:59 Reassessment: Patient appears in no apparent distress at this time. Patient and/or kj2 family updated on plan of care and expected duration. Pain level reassessed. Patient is alert, oriented x 3, equal unlabored respirations, skin warm/dry/pink. 18:53 Reassessment: 600ml emptied from ponce bag. kj2 21:04 GI: Bowel sounds present in right upper quadrant and left upper quadrant Abd is soft X kd3 4 quads. Vital Signs: 14:21 BP 136 / 86; Pulse 76; Resp 18 S; Temp 97.1(TE); Pulse Ox 99% on R/A; Weight 99.79 kg aa5 (R); Height 6 ft. 0 in. (R); 15:00 BP 122 / 79; Pulse 57; Resp 18; Pulse Ox 100% ; ar8 16:06 BP 133 / 87; Pulse 65; Resp 17; Pulse Ox 99% ; ar8 16:54 BP 125 / 76; Pulse 62; Resp 18; Pulse Ox 98% ; kj2 17:59 BP 118 / 83; Pulse 66; Resp 18; Pulse Ox 100% on R/A; kj2 18:53 BP 123 / 86; Pulse 62; Resp 18; Pulse Ox 98% ; kj2 21:05 BP 121 / 78; Pulse 63; Resp 18; Pulse Ox 99% on R/A; kd3 14:21 Body Mass Index 29.84 (99.79 kg, 182.88 cm) aa5 ED Course: 14:15 Patient arrived in ED. im 14:15 Ab Johns, [facility] 14:15 Tom Bowman DO is Attending Physician. dr5 14:21 Arm band placed on. aa5 14:25 Triage completed. aa5 14:39 Sami Martínez, RN is Primary Nurse. ar8 14:56 No provider procedures requiring assistance completed. Inserted saline lock: 22 gauge ar8 in left antecubital area, using aseptic technique. Blood collected. Flushed with 10 mL NS. 15:00 Bed in low position. Call light in reach. Side rails up X2. Provided Education on: plan ar8 of care. 15:10 Ponce cath inserted, using sterile technique, 16 Fr., by me, balloon inflated, to ar8 gravity drainage, urine specimen collected. 15:30 CBC with Diff Sent. ar8 15:30 CMP Sent. ar8 15:31 Lipase Sent. ar8 16:10 CT Abd/Pelvis - IV Contrast Only In Process Unspecified. EDMS 19:02 Report given to DENZEL Viveros. kj2 19:04 Primary Nurse role handed off by Sami Martínez, DENZEL kd3 19:04 Mary Mercado, DENZEL is Primary Nurse. kd3 21:04 IV discontinued, intact, bleeding controlled, No redness/swelling at site. Pressure kd3 dressing applied. Administered Medications: 15:00 Drug: Ondansetron IVP 4 mg IVP once; over 2 minutes Route: IVP; Site: left antecubital; ar8 15:00 Drug: NS 0.9% IV 1000 ml IV at 1 bolus Per protocol; to be given as a bolus over 60 ar8 minutes Route: IV; Rate: 1 bolus; Site: left antecubital; 15:02 Drug: morphine IVP or IV 4 mg IVP once over 4 mins Route: IVP; Infused Over: 4 mins; ar8 Site: left antecubital; 15:07 Drug: Ativan IVP 1 mg IVP once Route: IVP; Site: left antecubital; ar8 17:52 Follow up: Response: No adverse reaction kj2 16:34 Drug: Magnesium Citrate PO Liquid 300 ml PO once Route: PO; kj2 17:36 Drug: Dulcolax NE Suppository 10 mg NE once Route: NE; kj2 17:52 Drug: Ativan IVP 1 mg IVP once Route: IVP; Site: left antecubital; kj2 21:04 Not Given (Patient Refused): fleet ml NE once; may repeat once kd3 Medication: 15:00 VIS not applicable for this client. ar8 Output: 15:55 Urine: 1000ml (Ponce); Total: 1000ml. ar8 18:53 Urine: 600ml (Ponce); Total: 1600ml. kj2 Outcome: 20:37 Discharge ordered by . dr5 21:04 Discharged to home ambulatory, kd3 21:04 Condition: stable 21:04 Discharge instructions given to patient, Instructed on discharge instructions, follow up and referral plans. medication usage, Demonstrated understanding of instructions, follow-up care, medications, Prescriptions given X 3, 21:05 Patient left the ED. kd3 Signatures: Dispatcher [employer] EDMS Sheyla Mcgrath RN RN aa5 Mary Mercado RN RN kd3 Angeles Saab Krystal RN RN kj2 Ab Johns, [employer]-Cdr5 Sami Martínez, DENZEL RN ar8
[2025-01-06 04:18] VITALS: TEMP 97.1
[2025-01-06 04:39] VITALS: BP 121/78; O2SAT 99
== END 2025-01-05 21:05 | disposition home or self-care (01) ==
LOC: ER 14:07
DX: K59.00 Constipation, unspecified (principal)
CPT/HCPCS: 36415; 51702; 74177; 80053; 81001; 83690; 85025; 96374; 96375; 99285; J2405; J7030; Q9967